=== PATIENT | female | born 1995 | race Two or more races ===

== ENCOUNTER 2023-12-03 13:30 | Inpatient (IN) | payer OTHER, SELFPAY ==
[2023-12-03] VITALS (118 sets, daily range): BP systolic 93–173; BP diastolic 54–115; PULSE 56–114; RESP 14–18; TEMP 36.2–36.7; O2SAT 81–100; BMI 26.4
[2023-12-03] MEDS: Lactated Ringers 1,000 ML 50 ML IV (13:20)
[2023-12-03] MEDS: 0.9% Saline Lock 10 ML Syringe IV (13:20)
[2023-12-03 13:33] LABS: Hematocrit 33.3 % (37-47); Mean Corpuscular Hgb 29.3 pg (27.0-32.0); Mean Corpuscular Volume 88.6 fL (81-99); Mean Platelet Vol. 11.5 fl (6.2-12.0); Platelet Count 191 K/mm3 (150-450); RBC Distribution Width CV 13.8 % (11.6-14.6); RBC Distribution Width SD 43.9 fl (35.1-43.9); Red Blood Count 3.76 M/mm3 (4.2-5.4); White Blood Count 6.3 K/mm3 (4.4-11.0)
[2023-12-03 13:45] LABS: Protein:Creat Ratio 8381 mg/g CRE (0-200)
[2023-12-03] MEDS: Labetalol (Prefilled) 20 MG/4 ML IV (13:56)
[2023-12-03 13:59] LABS: AST(SGOT) 31 U/L (15-37); Alanine Aminotransfer ALT/SGPT 16 U/L (13-56); EST Glomerular Filtration Rate 70 mL/min (>60); Est Glom Filt Rate - Afr Amer 84 mL/min (>60); Uric Acid 6.3 mg/dL (2.6-6.0)
[2023-12-03] MEDS: Magnesium Sulfate 4gm/100mL 4 GM/100 ML IV.SOLN. IV (13:59)
[2023-12-03] MEDS: Betamethasone/Betamethasone 30 MG/5 ML Vial 12 MG IM (14:02)
[2023-12-03] MEDS: Magnesium Sulfate 20 GM/500 ML BAG IV ×2 (14:24→23:41)
[2023-12-03] MEDS: Ondansetron 4 MG/2 ML Vial IV (15:11)
[2023-12-03] MEDS: Oxytocin 15 Units/NS 250ml 15 UNITS/250 ML IV.SOLN 2 UNITS IV (15:40)
[2023-12-03] MEDS: Penicillin G Pot 5,000,000 UNITS in 0.9% Normal Saline (100mL MB+) 100 ML 150 UNITS IV (15:49)
[2023-12-03] MEDS: Labetalol 100 MG Tablet PO (15:50)
[2023-12-03] MEDS: Penicillin G 3,000,000 Units 50 ML 100 UNITS IV (19:49)
--- NOTE | 2023-12-03 20:43 | PCM.HP.OB ---
HPI - General General Date of Admission: 12/03/23 Date of Service: 12/03/23 Chief Complaint: pre eclampsia HPI Narrative KIRBY STINSON, is a 28 F who presents for evaluation given elevated p/c ratio and creatinine on outpatient labs. She denies HARPER or vision changes. Has had swelling. No ctx, vb, lof. +FM. PFSH PFSH Medical History (Updated 12/03/23 @ 20:[address] Sapna Andrews, DO) Asthma Depression Anxiety Pre-eclampsia Gestational HTN Home Medications ?Medication ?Instructions ?Recorded ?Last Taken ?Type aspirin 81 mg chewable tablet 1 tab PO DAILY 12/03/23 12/01/23 20:00 History (Aspirin Childrens) 1 TAB doxylamine succinate 25 mg tablet 12.5 mg PO QHS PRN sleep 12/03/23 12/01/23 20:00 History (Unisom (doxylamine)) 12.5 mg ferrous sulfate 325 mg (65 mg 325 mg PO QODAY 12/03/23 12/01/23 08:00 History iron) tablet (FeroSul) 325 mg fluoxetine 20 mg capsule 20 mg PO DAILY 12/03/23 12/01/23 20:00 History 20 mg pantoprazole 20 mg tablet,delayed 20 mg PO DAILY 12/03/23 12/01/23 20:00 History release (Protonix) 20 mg vit no.95-ferrous 1 tab PO DAILY 12/03/23 12/01/23 20:00 History fumarate 28 mg-folic acid 800 mcg 1 TAB tablet () pyridoxine (vitamin B6) 25 mg 25 mg PO DAILY 12/03/23 12/01/23 20:00 History tablet 25 mg Allergy/AdvReac Type Severity Reaction Status Date / Time pumpkin Allergy Severe itchy Verified 12/03/23 12:51 throat Surgical History (Updated 12/03/23 @ 18:49 by Deana Pena) History of surgery Social History Smoking Status: Never smoker History Elective abortions Hx Para 0 Spontaneous abortions Hx # Term Pregnancies Ectopic pregnancies Hx # Pregnancies Multiple births # of living children NST FHR Rate Baby A FHR Category:: Category I Uterine Activity:: no ctx's on admission Vital Signs Vital Signs Vital Signs: 12/03/23 12:38 12/03/23 12:38 12/03/23 12:38 Temperature Temperature Source Temporal Pulse Rate 77 Respiratory Rate Respiratory Effort Respiratory Depth Respiratory Pattern Blood Pressure 143/105 H Blood Pressure Mean BP Systolic 143 BP Diastolic 105 Blood Pressure Source Blood Pressure Position Blood Pressure Location Pulse Ox Oxygen Delivery Method 12/03/23 12:38 12/03/23 12:38 12/03/23 12:54 Temperature 97.9 F Temperature Source Pulse Rate Respiratory Rate 18 Respiratory Effort Respiratory Depth Respiratory Pattern Blood Pressure 153/109 H Blood Pressure Mean BP Systolic 153 BP Diastolic 109 Blood Pressure Source Blood Pressure Position Blood Pressure Location Pulse Ox Oxygen Delivery Method 12/03/23 12:54 12/03/23 13:10 12/03/23 13:10 Temperature Temperature Source Pulse Rate 71 64 Respiratory Rate Respiratory Effort Respiratory Depth Respiratory Pattern Blood Pressure 152/104 H Blood Pressure Mean BP Systolic 152 BP Diastolic 104 Blood Pressure Source Blood Pressure Position Blood Pressure Location Pulse Ox Oxygen Delivery Method 12/03/23 13:24 12/03/23 13:24 12/03/23 13:39 Temperature Temperature Source Pulse Rate 69 Respiratory Rate Respiratory Effort Respiratory Depth Respiratory Pattern Blood Pressure 164/105 H 172/112 H Blood Pressure Mean BP Systolic 164 172 BP Diastolic 105 112 Blood Pressure Source Blood Pressure Position Blood Pressure Location Pulse Ox Oxygen Delivery Method 12/03/23 13:39 12/03/23 13:54 12/03/23 13:54 Temperature Temperature Source Pulse Rate 69 64 Respiratory Rate Respiratory Effort Respiratory Depth Respiratory Pattern Blood Pressure 173/115 H Blood Pressure Mean BP Systolic 173 BP Diastolic 115 Blood Pressure Source Blood Pressure Position Blood Pressure Location Pulse Ox Oxygen Delivery Method 12/03/23 13:59 12/03/23 13:59 12/03/23 14:00 Temperature Temperature Source Pulse Rate 67 70 Respiratory Rate 18 Respiratory Effort Normal Respiratory Depth Normal Respiratory Pattern Normal Blood Pressure 173/115 H Blood Pressure Mean 134 BP Systolic BP Diastolic Blood Pressure Source Monitor Blood Pressure Position Semi-Fowlers Blood Pressure Location Left Arm Pulse Ox 98 98 Oxygen Delivery Method Room Air 12/03/23 14:04 12/03/23 14:04 12/03/23 14:05 Temperature Temperature Source Pulse Rate 93 Respiratory Rate Respiratory Effort Respiratory Depth Respiratory Pattern Blood Pressure 136/92 H Blood Pressure Mean BP Systolic 136 BP Diastolic 92 Blood Pressure Source Blood Pressure Position Blood Pressure Location Pulse Ox 98 Oxygen Delivery Method 12/03/23 14:05 12/03/23 14:09 12/03/23 14:09 Temperature Temperature Source Pulse Rate 86 69 Respiratory Rate Respiratory Effort Respiratory Depth Respiratory Pattern Blood Pressure Blood Pressure Mean BP Systolic BP Diastolic Blood Pressure Source Blood Pressure Position Blood Pressure Location Pulse Ox 99 Oxygen Delivery Method 12/03/23 14:14 12/03/23 14:14 12/03/23 14:18 Temperature Temperature Source Pulse Rate 83 Respiratory Rate Respiratory Effort Normal Respiratory Depth Normal Respiratory Pattern Normal Blood Pressure Blood Pressure Mean BP Systolic BP Diastolic Blood Pressure Source Blood Pressure Position Blood Pressure Location Pulse Ox 99 Oxygen Delivery Method 12/03/23 14:19 12/03/23 14:19 12/03/23 14:24 Temperature Temperature Source Pulse Rate 78 76 Respiratory Rate Respiratory Effort Respiratory Depth Respiratory Pattern Blood Pressure Blood Pressure Mean BP Systolic BP Diastolic Blood Pressure Source Blood Pressure Position Blood Pressure Location Pulse Ox 97 Oxygen Delivery Method 12/03/23 14:24 12/03/23 14:25 12/03/23 14:25 Temperature Temperature Source Pulse Rate 68 Respiratory Rate Respiratory Effort Respiratory Depth Respiratory Pattern Blood Pressure 140/84 H Blood Pressure Mean BP Systolic 140 BP Diastolic 84 Blood Pressure Source Blood Pressure Position Blood Pressure Location Pulse Ox 97 Oxygen Delivery Method 12/03/23 14:28 12/03/23 14:28 12/03/23 14:29 Temperature Temperature Source Pulse Rate 74 78 Respiratory Rate Respiratory Effort Respiratory Depth Respiratory Pattern Blood Pressure Blood Pressure Mean BP Systolic BP Diastolic Blood Pressure Source Blood Pressure Position Blood Pressure Location Pulse Ox 94 Oxygen Delivery Method 12/03/23 14:29 12/03/23 14:34 12/03/23 14:34 Temperature Temperature Source Pulse Rate 73 Respiratory Rate Respiratory Effort Respiratory Depth Respiratory Pattern Blood Pressure Blood Pressure Mean BP Systolic BP Diastolic Blood Pressure Source Blood Pressure Position Blood Pressure Location Pulse Ox 98 98 Oxygen Delivery Method 12/03/23 14:35 12/03/23 14:35 12/03/23 14:39 Temperature Temperature Source Pulse Rate 72 69 Respiratory Rate Respiratory Effort Respiratory Depth Respiratory Pattern Blood Pressure 137/90 H Blood Pressure Mean BP Systolic 137 BP Diastolic 90 Blood Pressure Source Blood Pressure Position Blood Pressure Location Pulse Ox Oxygen Delivery Method 12/03/23 14:39 12/03/23 14:44 12/03/23 14:44 Temperature Temperature Source Pulse Rate 66 Respiratory Rate Respiratory Effort Respiratory Depth Respiratory Pattern Blood Pressure Blood Pressure Mean BP Systolic BP Diastolic Blood Pressure Source Blood Pressure Position Blood Pressure Location Pulse Ox 98 97 Oxygen Delivery Method 12/03/23 14:45 12/03/23 14:45 12/03/23 14:49 Temperature Temperature Source Pulse Rate 75 74 Respiratory Rate Respiratory Effort Respiratory Depth Respiratory Pattern Blood Pressure 129/89 H Blood Pressure Mean BP Systolic 129 BP Diastolic 89 Blood Pressure Source Blood Pressure Position Blood Pressure Location Pulse Ox Oxygen Delivery Method 12/03/23 14:49 12/03/23 14:54 12/03/23 14:54 Temperature Temperature Source Pulse Rate 101 H Respiratory Rate Respiratory Effort Respiratory Depth Respiratory Pattern Blood Pressure Blood Pressure Mean BP Systolic BP Diastolic Blood Pressure Source Blood Pressure Position Blood Pressure Location Pulse Ox 98 99 Oxygen Delivery Method 12/03/23 14:56 12/03/23 14:56 12/03/23 14:59 Temperature Temperature Source Pulse Rate 89 76 Respiratory Rate Respiratory Effort Respiratory Depth Respiratory Pattern Blood Pressure 151/101 H Blood Pressure Mean BP Systolic 151 BP Diastolic 101 Blood Pressure Source Blood Pressure Position Blood Pressure Location Pulse Ox Oxygen Delivery Method 12/03/23 14:59 12/03/23 15:03 12/03/23 15:04 Temperature Temperature Source Pulse Rate 93 Respiratory Rate Respiratory Effort Normal Respiratory Depth Normal Respiratory Pattern Normal Blood Pressure 111/73 Blood Pressure Mean 85 BP Systolic BP Diastolic Blood Pressure Source Monitor Blood Pressure Position Semi-Fowlers Blood Pressure Location Left Arm Pulse Ox 96 Oxygen Delivery Method 12/03/23 15:04 12/03/23 15:06 12/03/23 15:06 Temperature Temperature Source Pulse Rate 60 Respiratory Rate Respiratory Effort Respiratory Depth Respiratory Pattern Blood Pressure 137/95 H Blood Pressure Mean BP Systolic 137 BP Diastolic 95 Blood Pressure Source Blood Pressure Position Blood Pressure Location Pulse Ox 99 Oxygen Delivery Method 12/03/23 15:06 12/03/23 15:06 12/03/23 15:09 Temperature Temperature Source Pulse Rate 61 73 Respiratory Rate Respiratory Effort Respiratory Depth Respiratory Pattern Blood Pressure Blood Pressure Mean BP Systolic BP Diastolic Blood Pressure Source Blood Pressure Position Blood Pressure Location Pulse Ox 94 Oxygen Delivery Method 12/03/23 15:09 12/03/23 15:12 12/03/23 15:12 Temperature Temperature Source Pulse Rate 60 Respiratory Rate Respiratory Effort Respiratory Depth Respiratory Pattern Blood Pressure Blood Pressure Mean BP Systolic BP Diastolic Blood Pressure Source Blood Pressure Position Blood Pressure Location Pulse Ox 97 93 Oxygen Delivery Method 12/03/23 15:14 12/03/23 15:14 12/03/23 15:15 Temperature Temperature Source Pulse Rate 84 Respiratory Rate Respiratory Effort Respiratory Depth Respiratory Pattern Blood Pressure 114/77 Blood Pressure Mean BP Systolic 114 BP Diastolic 77 Blood Pressure Source Blood Pressure Position Blood Pressure Location Pulse Ox 98 Oxygen Delivery Method 12/03/23 15:15 12/03/23 15:19 12/03/23 15:19 Temperature Temperature Source Pulse Rate 77 72 Respiratory Rate Respiratory Effort Respiratory Depth Respiratory Pattern Blood Pressure Blood Pressure Mean BP Systolic BP Diastolic Blood Pressure Source Blood Pressure Position Blood Pressure Location Pulse Ox 98 Oxygen Delivery Method 12/03/23 15:24 12/03/23 15:24 12/03/23 15:29 Temperature Temperature Source Pulse Rate 77 81 Respiratory Rate Respiratory Effort Respiratory Depth Respiratory Pattern Blood Pressure Blood Pressure Mean BP Systolic BP Diastolic Blood Pressure Source Blood Pressure Position Blood Pressure Location Pulse Ox 99 Oxygen Delivery Method 12/03/23 15:29 12/03/23 15:33 12/03/23 15:34 Temperature Temperature Source Pulse Rate 66 Respiratory Rate 14 Respiratory Effort Normal Respiratory Depth Normal Respiratory Pattern Normal Blood Pressure 111/79 Blood Pressure Mean 89 BP Systolic BP Diastolic Blood Pressure Source Monitor Blood Pressure Position Semi-Fowlers Blood Pressure Location Left Arm Pulse Ox 99 Oxygen Delivery Method Room Air 12/03/23 15:34 12/03/23 15:36 12/03/23 15:36 Temperature Temperature Source Pulse Rate 74 Respiratory Rate Respiratory Effort Respiratory Depth Respiratory Pattern Blood Pressure 116/84 H Blood Pressure Mean BP Systolic 116 BP Diastolic 84 Blood Pressure Source Blood Pressure Position Blood Pressure Location Pulse Ox 99 Oxygen Delivery Method 12/03/23 15:39 12/03/23 15:39 12/03/23 15:39 Temperature Temperature Source Pulse Rate 62 60 Respiratory Rate Respiratory Effort Respiratory Depth Respiratory Pattern Blood Pressure Blood Pressure Mean BP Systolic BP Diastolic Blood Pressure Source Blood Pressure Position Blood Pressure Location Pulse Ox 97 Oxygen Delivery Method 12/03/23 15:39 12/03/23 15:44 12/03/23 15:44 Temperature Temperature Source Pulse Rate 76 Respiratory Rate Respiratory Effort Respiratory Depth Respiratory Pattern Blood Pressure Blood Pressure Mean BP Systolic BP Diastolic Blood Pressure Source Blood Pressure Position Blood Pressure Location Pulse Ox 94 97 Oxygen Delivery Method 12/03/23 15:46 12/03/23 15:46 12/03/23 15:49 Temperature Temperature Source Pulse Rate 57 L Respiratory Rate Respiratory Effort Respiratory Depth Respiratory Pattern Blood Pressure 111/79 Blood Pressure Mean BP Systolic 111 BP Diastolic 79 Blood Pressure Source Blood Pressure Position Blood Pressure Location Pulse Ox 93 Oxygen Delivery Method 12/03/23 15:49 12/03/23 15:49 12/03/23 15:54 Temperature Temperature Source Pulse Rate 71 69 Respiratory Rate Respiratory Effort Respiratory Depth Respiratory Pattern Blood Pressure Blood Pressure Mean BP Systolic BP Diastolic Blood Pressure Source Blood Pressure Position Blood Pressure Location Pulse Ox 98 Oxygen Delivery Method 12/03/23 15:54 12/03/23 15:59 12/03/23 15:59 Temperature Temperature Source Pulse Rate 74 Respiratory Rate Respiratory Effort Respiratory Depth Respiratory Pattern Blood Pressure Blood Pressure Mean BP Systolic BP Diastolic Blood Pressure Source Blood Pressure Position Blood Pressure Location Pulse Ox 99 100 Oxygen Delivery Method 12/03/23 16:04 12/03/23 16:04 12/03/23 16:04 Temperature Temperature Source Pulse Rate 78 Respiratory Rate Respiratory Effort Respiratory Depth Respiratory Pattern Blood Pressure 119/85 H Blood Pressure Mean BP Systolic 119 BP Diastolic 85 Blood Pressure Source Blood Pressure Position Blood Pressure Location Pulse Ox 98 Oxygen Delivery Method 12/03/23 16:04 12/03/23 16:09 12/03/23 16:09 Temperature Temperature Source Pulse Rate 77 77 Respiratory Rate Respiratory Effort Respiratory Depth Respiratory Pattern Blood Pressure Blood Pressure Mean BP Systolic BP Diastolic Blood Pressure Source Blood Pressure Position Blood Pressure Location Pulse Ox 98 Oxygen Delivery Method 12/03/23 16:14 12/03/23 16:14 12/03/23 16:19 Temperature Temperature Source Pulse Rate 70 Respiratory Rate Respiratory Effort Respiratory Depth Respiratory Pattern Blood Pressure 136/85 H Blood Pressure Mean BP Systolic 136 BP Diastolic 85 Blood Pressure Source Blood Pressure Position Blood Pressure Location Pulse Ox 99 Oxygen Delivery Method 12/03/23 16:19 12/03/23 16:19 12/03/23 16:24 Temperature Temperature Source Pulse Rate 67 77 Respiratory Rate Respiratory Effort Respiratory Depth Respiratory Pattern Blood Pressure Blood Pressure Mean BP Systolic BP Diastolic Blood Pressure Source Blood Pressure Position Blood Pressure Location Pulse Ox 100 Oxygen Delivery Method 12/03/23 16:24 12/03/23 16:29 12/03/23 16:29 Temperature Temperature Source Pulse Rate 77 Respiratory Rate Respiratory Effort Respiratory Depth Respiratory Pattern Blood Pressure Blood Pressure Mean BP Systolic BP Diastolic Blood Pressure Source Blood Pressure Position Blood Pressure Location Pulse Ox 100 100 Oxygen Delivery Method 12/03/23 16:33 12/03/23 16:34 12/03/23 16:34 Temperature Temperature Source Pulse Rate 73 Respiratory Rate Respiratory Effort Normal Respiratory Depth Normal Respiratory Pattern Blood Pressure 136/85 H Blood Pressure Mean 102 BP Systolic BP Diastolic Blood Pressure Source Monitor Blood Pressure Position Semi-Fowlers Blood Pressure Location Left Arm Pulse Ox 100 Oxygen Delivery Method 12/03/23 16:39 12/03/23 16:39 12/03/23 16:44 Temperature Temperature Source Pulse Rate 73 76 Respiratory Rate Respiratory Effort Respiratory Depth Respiratory Pattern Blood Pressure Blood Pressure Mean BP Systolic BP Diastolic Blood Pressure Source Blood Pressure Position Blood Pressure Location Pulse Ox 100 Oxygen Delivery Method 12/03/23 16:44 12/03/23 16:49 12/03/23 16:49 Temperature Temperature Source Pulse Rate 70 Respiratory Rate Respiratory Effort Respiratory Depth Respiratory Pattern Blood Pressure Blood Pressure Mean BP Systolic BP Diastolic Blood Pressure Source Blood Pressure Position Blood Pressure Location Pulse Ox 100 100 Oxygen Delivery Method 12/03/23 16:51 12/03/23 16:51 12/03/23 16:54 Temperature Temperature Source Pulse Rate 68 64 Respiratory Rate Respiratory Effort Respiratory Depth Respiratory Pattern Blood Pressure 111/73 Blood Pressure Mean BP Systolic 111 BP Diastolic 73 Blood Pressure Source Blood Pressure Position Blood Pressure Location Pulse Ox Oxygen Delivery Method 12/03/23 16:54 12/03/23 16:59 12/03/23 16:59 Temperature Temperature Source Pulse Rate 74 Respiratory Rate Respiratory Effort Respiratory Depth Respiratory Pattern Blood Pressure Blood Pressure Mean BP Systolic BP Diastolic Blood Pressure Source Blood Pressure Position Blood Pressure Location Pulse Ox 99 100 Oxygen Delivery Method 12/03/23 17:00 12/03/23 17:04 12/03/23 17:04 Temperature Temperature Source Pulse Rate 71 Respiratory Rate 14 Respiratory Effort Respiratory Depth Respiratory Pattern Blood Pressure 111/73 Blood Pressure Mean 85 BP Systolic BP Diastolic Blood Pressure Source Monitor Blood Pressure Position Semi-Fowlers Blood Pressure Location Right Arm Pulse Ox 100 Oxygen Delivery Method Room Air 12/03/23 17:09 12/03/23 17:09 12/03/23 17:14 Temperature Temperature Source Pulse Rate 67 67 Respiratory Rate Respiratory Effort Respiratory Depth Respiratory Pattern Blood Pressure Blood Pressure Mean BP Systolic BP Diastolic Blood Pressure Source Blood Pressure Position Blood Pressure Location Pulse Ox 100 Oxygen Delivery Method 12/03/23 17:14 12/03/23 17:19 12/03/23 17:19 Temperature Temperature Source Pulse Rate 66 Respiratory Rate Respiratory Effort Respiratory Depth Respiratory Pattern Blood Pressure Blood Pressure Mean BP Systolic BP Diastolic Blood Pressure Source Blood Pressure Position Blood Pressure Location Pulse Ox 97 96 Oxygen Delivery Method 12/03/23 17:24 12/03/23 17:24 12/03/23 17:29 Temperature Temperature Source Pulse Rate 56 L 60 Respiratory Rate Respiratory Effort Respiratory Depth Respiratory Pattern Blood Pressure Blood Pressure Mean BP Systolic BP Diastolic Blood Pressure Source Blood Pressure Position Blood Pressure Location Pulse Ox 96 Oxygen Delivery Method 12/03/23 17:29 12/03/23 17:34 12/03/23 17:34 Temperature Temperature Source Pulse Rate 64 Respiratory Rate Respiratory Effort Respiratory Depth Respiratory Pattern Blood Pressure Blood Pressure Mean BP Systolic BP Diastolic Blood Pressure Source Blood Pressure Position Blood Pressure Location Pulse Ox 97 95 Oxygen Delivery Method 12/03/23 17:34 12/03/23 17:34 12/03/23 17:39 Temperature Temperature Source Pulse Rate 74 58 L Respiratory Rate Respiratory Effort Respiratory Depth Respiratory Pattern Blood Pressure Blood Pressure Mean BP Systolic BP Diastolic Blood Pressure Source Blood Pressure Position Blood Pressure Location Pulse Ox 94 Oxygen Delivery Method 12/03/23 17:39 12/03/23 17:44 12/03/23 17:44 Temperature Temperature Source Pulse Rate 68 Respiratory Rate Respiratory Effort Respiratory Depth Respiratory Pattern Blood Pressure Blood Pressure Mean BP Systolic BP Diastolic Blood Pressure Source Blood Pressure Position Blood Pressure Location Pulse Ox 98 95 Oxygen Delivery Method 12/03/23 17:45 12/03/23 17:45 12/03/23 17:49 Temperature Temperature Source Pulse Rate 84 66 Respiratory Rate Respiratory Effort Respiratory Depth Respiratory Pattern Blood Pressure Blood Pressure Mean BP Systolic BP Diastolic Blood Pressure Source Blood Pressure Position Blood Pressure Location Pulse Ox 94 Oxygen Delivery Method 12/03/23 17:49 12/03/23 17:52 12/03/23 17:52 Temperature Temperature Source Pulse Rate 74 Respiratory Rate Respiratory Effort Respiratory Depth Respiratory Pattern Blood Pressure 93/54 L Blood Pressure Mean BP Systolic 93 BP Diastolic 54 Blood Pressure Source Blood Pressure Position Blood Pressure Location Pulse Ox 95 Oxygen Delivery Method 12/03/23 17:54 12/03/23 17:54 12/03/23 17:59 Temperature Temperature Source Pulse Rate 66 58 L Respiratory Rate Respiratory Effort Respiratory Depth Respiratory Pattern Blood Pressure Blood Pressure Mean BP Systolic BP Diastolic Blood Pressure Source Blood Pressure Position Blood Pressure Location Pulse Ox 95 Oxygen Delivery Method 12/03/23 17:59 12/03/23 18:00 12/03/23 18:04 Temperature Temperature Source Pulse Rate 58 L 81 Respiratory Rate 14 Respiratory Effort Normal Respiratory Depth Normal Respiratory Pattern Normal Blood Pressure 93/54 L Blood Pressure Mean 67 BP Systolic BP Diastolic Blood Pressure Source Monitor Blood Pressure Position Semi-Fowlers Blood Pressure Location Left Arm Pulse Ox 97 97 Oxygen Delivery Method 12/03/23 18:04 12/03/23 18:09 12/03/23 18:09 Temperature Temperature Source Pulse Rate 66 Respiratory Rate Respiratory Effort Respiratory Depth Respiratory Pattern Blood Pressure Blood Pressure Mean BP Systolic BP Diastolic Blood Pressure Source Blood Pressure Position Blood Pressure Location Pulse Ox 100 100 Oxygen Delivery Method 12/03/23 18:14 12/03/23 18:14 12/03/23 18:15 Temperature Temperature Source Temporal Pulse Rate 66 Respiratory Rate Respiratory Effort Respiratory Depth Respiratory Pattern Blood Pressure Blood Pressure Mean BP Systolic BP Diastolic Blood Pressure Source Blood Pressure Position Blood Pressure Location Pulse Ox 99 Oxygen Delivery Method 12/03/23 18:15 12/03/23 18:15 12/03/23 18:19 Temperature 98.0 F Temperature Source Pulse Rate 73 Respiratory Rate 16 Respiratory Effort Respiratory Depth Respiratory Pattern Blood Pressure Blood Pressure Mean BP Systolic BP Diastolic Blood Pressure Source Blood Pressure Position Blood Pressure Location Pulse Ox Oxygen Delivery Method 12/03/23 18:19 12/03/23 18:24 12/03/23 18:24 Temperature Temperature Source Pulse Rate 62 Respiratory Rate Respiratory Effort Respiratory Depth Respiratory Pattern Blood Pressure Blood Pressure Mean BP Systolic BP Diastolic Blood Pressure Source Blood Pressure Position Blood Pressure Location Pulse Ox 100 100 Oxygen Delivery Method 12/03/23 18:29 12/03/23 18:29 12/03/23 18:31 Temperature Temperature Source Pulse Rate 70 Respiratory Rate Respiratory Effort Respiratory Depth Respiratory Pattern Blood Pressure 115/67 Blood Pressure Mean BP Systolic 115 BP Diastolic 67 Blood Pressure Source Blood Pressure Position Blood Pressure Location Pulse Ox 100 Oxygen Delivery Method 12/03/23 18:31 12/03/23 18:34 12/03/23 18:34 Temperature Temperature Source Pulse Rate 56 L 69 Respiratory Rate Respiratory Effort Respiratory Depth Respiratory Pattern Blood Pressure Blood Pressure Mean BP Systolic BP Diastolic Blood Pressure Source Blood Pressure Position Blood Pressure Location Pulse Ox 100 Oxygen Delivery Method 12/03/23 18:39 12/03/23 18:39 12/03/23 18:41 Temperature Temperature Source Pulse Rate 66 74 Respiratory Rate Respiratory Effort Respiratory Depth Respiratory Pattern Blood Pressure Blood Pressure Mean BP Systolic BP Diastolic Blood Pressure Source Blood Pressure Position Blood Pressure Location Pulse Ox 100 Oxygen Delivery Method 12/03/23 18:41 12/03/23 18:44 12/03/23 18:44 Temperature Temperature Source Pulse Rate 79 Respiratory Rate Respiratory Effort Respiratory Depth Respiratory Pattern Blood Pressure Blood Pressure Mean BP Systolic BP Diastolic Blood Pressure Source Blood Pressure Position Blood Pressure Location Pulse Ox 81 100 Oxygen Delivery Method 12/03/23 18:49 12/03/23 18:49 12/03/23 18:54 Temperature Temperature Source Pulse Rate 67 58 L Respiratory Rate Respiratory Effort Respiratory Depth Respiratory Pattern Blood Pressure Blood Pressure Mean BP Systolic BP Diastolic Blood Pressure Source Blood Pressure Position Blood Pressure Location Pulse Ox 100 Oxygen Delivery Method 12/03/23 18:54 12/03/23 18:56 12/03/23 18:56 Temperature 98 F Temperature Source Temporal Temporal Pulse Rate 58 L Respiratory Rate 14 Respiratory Effort Normal Respiratory Depth Normal Respiratory Pattern Normal Blood Pressure 115/67 Blood Pressure Mean 83 BP Systolic BP Diastolic Blood Pressure Source Monitor Blood Pressure Position Semi-Fowlers Blood Pressure Location Left Arm Pulse Ox 100 100 Oxygen Delivery Method Room Air 12/03/23 18:58 12/03/23 18:58 12/03/23 18:59 Temperature Temperature Source Pulse Rate 91 82 Respiratory Rate Respiratory Effort Respiratory Depth Respiratory Pattern Blood Pressure Blood Pressure Mean BP Systolic BP Diastolic Blood Pressure Source Blood Pressure Position Blood Pressure Location Pulse Ox 84 Oxygen Delivery Method 12/03/23 18:59 12/03/23 19:04 12/03/23 19:04 Temperature Temperature Source Pulse Rate 77 Respiratory Rate Respiratory Effort Respiratory Depth Respiratory Pattern Blood Pressure Blood Pressure Mean BP Systolic BP Diastolic Blood Pressure Source Blood Pressure Position Blood Pressure Location Pulse Ox 97 91 Oxygen Delivery Method 12/03/23 19:09 12/03/23 19:09 12/03/23 19:14 Temperature Temperature Source Pulse Rate 74 62 Respiratory Rate Respiratory Effort Respiratory Depth Respiratory Pattern Blood Pressure Blood Pressure Mean BP Systolic BP Diastolic Blood Pressure Source Blood Pressure Position Blood Pressure Location Pulse Ox 99 Oxygen Delivery Method 12/03/23 19:14 12/03/23 19:19 12/03/23 19:19 Temperature Temperature Source Pulse Rate 71 Respiratory Rate Respiratory Effort Respiratory Depth Respiratory Pattern Blood Pressure Blood Pressure Mean BP Systolic BP Diastolic Blood Pressure Source Blood Pressure Position Blood Pressure Location Pulse Ox 97 100 Oxygen Delivery Method 12/03/23 19:24 12/03/23 19:24 12/03/23 19:29 Temperature Temperature Source Pulse Rate 58 L 61 Respiratory Rate Respiratory Effort Respiratory Depth Respiratory Pattern Blood Pressure Blood Pressure Mean BP Systolic BP Diastolic Blood Pressure Source Blood Pressure Position Blood Pressure Location Pulse Ox 99 Oxygen Delivery Method 12/03/23 19:29 12/03/23 19:30 12/03/23 19:30 Temperature 97.4 F L Temperature Source Temporal Temporal Pulse Rate 69 Respiratory Rate 16 Respiratory Effort Normal Respiratory Depth Normal Respiratory Pattern Normal Blood Pressure 115/80 Blood Pressure Mean 91 BP Systolic BP Diastolic Blood Pressure Source Monitor Blood Pressure Position Semi-Fowlers Blood Pressure Location Right Arm Pulse Ox 98 99 Oxygen Delivery Method Room Air 12/03/23 19:34 12/03/23 19:34 12/03/23 19:34 Temperature Temperature Source Pulse Rate 69 Respiratory Rate Respiratory Effort Respiratory Depth Respiratory Pattern Blood Pressure 115/80 Blood Pressure Mean BP Systolic 115 BP Diastolic 80 Blood Pressure Source Blood Pressure Position Blood Pressure Location Pulse Ox 99 Oxygen Delivery Method 12/03/23 19:34 12/03/23 19:34 12/03/23 19:34 Temperature 97.4 F L Temperature Source Temporal Pulse Rate Respiratory Rate 16 Respiratory Effort Respiratory Depth Respiratory Pattern Blood Pressure Blood Pressure Mean BP Systolic BP Diastolic Blood Pressure Source Blood Pressure Position Blood Pressure Location Pulse Ox Oxygen Delivery Method 12/03/23 19:39 12/03/23 19:39 12/03/23 19:44 Temperature Temperature Source Pulse Rate 70 68 Respiratory Rate Respiratory Effort Respiratory Depth Respiratory Pattern Blood Pressure Blood Pressure Mean BP Systolic BP Diastolic Blood Pressure Source Blood Pressure Position Blood Pressure Location Pulse Ox 100 Oxygen Delivery Method 12/03/23 19:44 12/03/23 19:49 12/03/23 19:49 Temperature Temperature Source Pulse Rate 74 Respiratory Rate Respiratory Effort Respiratory Depth Respiratory Pattern Blood Pressure Blood Pressure Mean BP Systolic BP Diastolic Blood Pressure Source Blood Pressure Position Blood Pressure Location Pulse Ox 100 100 Oxygen Delivery Method 12/03/23 19:54 12/03/23 19:54 12/03/23 19:59 Temperature Temperature Source Pulse Rate 69 69 Respiratory Rate Respiratory Effort Respiratory Depth Respiratory Pattern Blood Pressure Blood Pressure Mean BP Systolic BP Diastolic Blood Pressure Source Blood Pressure Position Blood Pressure Location Pulse Ox 100 Oxygen Delivery Method 12/03/23 19:59 12/03/23 20:04 12/03/23 20:04 Temperature Temperature Source Pulse Rate 66 Respiratory Rate Respiratory Effort Respiratory Depth Respiratory Pattern Blood Pressure Blood Pressure Mean BP Systolic BP Diastolic Blood Pressure Source Blood Pressure Position Blood Pressure Location Pulse Ox 98 99 Oxygen Delivery Method 12/03/23 20:09 12/03/23 20:09 12/03/23 20:14 Temperature Temperature Source Pulse Rate 60 63 Respiratory Rate Respiratory Effort Respiratory Depth Respiratory Pattern Blood Pressure Blood Pressure Mean BP Systolic BP Diastolic Blood Pressure Source Blood Pressure Position Blood Pressure Location Pulse Ox 98 Oxygen Delivery Method 12/03/23 20:14 12/03/23 20:19 12/03/23 20:19 Temperature Temperature Source Pulse Rate 60 Respiratory Rate Respiratory Effort Respiratory Depth Respiratory Pattern Blood Pressure Blood Pressure Mean BP Systolic BP Diastolic Blood Pressure Source Blood Pressure Position Blood Pressure Location Pulse Ox 98 98 Oxygen Delivery Method 12/03/23 20:24 12/03/23 20:24 12/03/23 20:29 Temperature Temperature Source Pulse Rate 59 L 68 Respiratory Rate Respiratory Effort Respiratory Depth Respiratory Pattern Blood Pressure Blood Pressure Mean BP Systolic BP Diastolic Blood Pressure Source Blood Pressure Position Blood Pressure Location Pulse Ox 98 Oxygen Delivery Method 12/03/23 20:29 12/03/23 20:33 12/03/23 20:33 Temperature Temperature Source Pulse Rate 60 Respiratory Rate Respiratory Effort Respiratory Depth Respiratory Pattern Blood Pressure 123/77 H Blood Pressure Mean BP Systolic 123 BP Diastolic 77 Blood Pressure Source Blood Pressure Position Blood Pressure Location Pulse Ox 98 Oxygen Delivery Method 12/03/23 20:33 12/03/23 20:33 12/03/23 20:33 Temperature 98.0 F Temperature Source Temporal Pulse Rate Respiratory Rate 16 Respiratory Effort Respiratory Depth Respiratory Pattern Blood Pressure Blood Pressure Mean BP Systolic BP Diastolic Blood Pressure Source Blood Pressure Position Blood Pressure Location Pulse Ox Oxygen Delivery Method 12/03/23 20:34 12/03/23 20:34 Temperature Temperature Source Pulse Rate 114 H Respiratory Rate Respiratory Effort Respiratory Depth Respiratory Pattern Blood Pressure Blood Pressure Mean BP Systolic BP Diastolic Blood Pressure Source Blood Pressure Position Blood Pressure Location Pulse Ox 82 Oxygen Delivery Method Weight Weight: 149 lb 7.574 oz Body Mass Index (BMI) 26.4 Labs Labs Labs: Blood Type O POSITIVE Antibody Screen NEGATIVE Hct 33.3 % (37-47) L Hgb 11.0 g/dL (12.0-15.0) L Assessment & Plan (1) 35 weeks gestation of : (2) Severe pre-eclampsia: PLAN: Severe range blood pressures on admission with elevated p/c ratio. Mag started for seizure prophylaxis. Labetalol HTN protocol started. BMZ x 1 given. Discussed r/b/a induction of labor with patient. Reviewed pre eclampsia with severe features and risks of prematurity. Questions answered and patient satisfied with plan of care. Pitocin started per protocol. PCN started for GBS unknown and cx sent. Pelvis adequate and EFW < 4500 grams. (3) History of depression: (4) Encounter for planned induction of labor:
--- NOTE | 2023-12-03 20:48 | PCM.PN.BLA ---
Progress Note patient not feeling ctx's on 10 of pitocin. Assessment & Plan Assessment/Plan (1) Encounter for planned induction of labor: PLAN: Cvx /0 head well applied. Cervix very posterior and patient with pain during exam, so unable to AROM at this time. Continue pitocin per protocol. (2) History of depression: (3) Severe pre-eclampsia: (4) 35 weeks gestation of :
[2023-12-03 21:43] LABS: Syphilis Antibodies Non-reactive
[2023-12-04] VITALS (67 sets, daily range): BP systolic 56–165; BP diastolic 31–112; PULSE 55–112; RESP 12–158; TEMP 30.2–37.1; O2SAT 89–100
[2023-12-04] MEDS: Penicillin G 3,000,000 Units 50 ML 100 UNITS IV ×2 (01:10→05:12)
[2023-12-04] MEDS: Acetaminophen 500 MG Tablet PO (01:32)
[2023-12-04] MEDS: Ondansetron 4 MG/2 ML Vial IV ×2 (03:22→07:52)
[2023-12-04] MEDS: 0.9% Saline Lock 10 ML Syringe IV ×3 (03:22→15:34)
--- NOTE | 2023-12-04 03:33 | PCM.PN.BLA ---
Progress Note patient comfortable with contractions. nausea with the magnesium. Assessment & Plan Assessment/Plan (1) Encounter for planned induction of labor: PLAN: Cvx 4/80/0, head well applied. AROM performed in usual sterile fashion with return of large amount of clear fluid and IUPC placed. Pitocin at 20. Cont current management. (2) History of depression: (3) Severe pre-eclampsia: (4) 35 weeks gestation of :
[2023-12-04] MEDS: proCHLORPERazine 10 MG/2 ML Vial IV (06:02)
[2023-12-04] MEDS: Oxytocin 15 Units/NS 250ml 15 UNITS/250 ML IV.SOLN 20 UNITS IV (06:31)
[2023-12-04] MEDS: Lactated Ringers 1,000 ML 50 ML IV (06:31)
--- NOTE | 2023-12-04 07:20 | EX.PCM.OBRPT ---
Documented by User: Dr. Samantha Devine MD 12/04/23 10:33 Vaginal Delivery Operative Information Date of Procedure: 12/04/23 Pre-Operative Diagnosis: 35 weeks gestation , severe PRE Eclampsia Post-Operative Diagnosis: live male infant Surgery / Procedure Performed: Spontaneous Vaginal Delivery Type of Anesthesia: None Time of Delivery: 07:18 Findings Description of Procedure: Patient progressed to fully dilated with an hands and knees. I was on the unit and called to the room for immediate delivery. head was upon my entry. Good maternal pushing efforts delivered the infant's head followed by the shoulders and the rest of the infants body without delay. The cord was clamped and cut and handed to the waiting nursery team for evaluation. At this time Dr. Andrews stepped into the room to continue management of the patient and delivery of placenta. She reported a 2nd degree laceration, right labial laceration, and right pito urethral lacerations appreciated and repaired by Dr. Andrews with 3-0 rapide in usual fashion. Presentation: Vertex Amniotic Membrane Rupture Type: Artificial Amniotic Fluid Description: Clear Placental Delivery Description: Expressed Placenta Disposition: [facility] Specimen(s) Removed: placenta Cord Vessel Description: 3 Vessels Cord Entanglement: None Cord Gases: ABG and VBG A Gender: Male Delayed Cord Clamping: No Post Vaginal Delivery Medications Given After Delivery: IV Pitocin Laceration: Perineal Extension/lac and 2nd degree Complication Complications: None Documented by User: Dr. Sapna Andrews DO 12/04/23 08:40 Vaginal Delivery Maternal Presentation Maternal Presentation: Medically Indicated Induction Type of Induction: Pitocin and Amniotomy Medical Reason for Induction: Preeclampsia, eclampsia Operative Information Estimated Blood Loss: 300 Fluids Replaced: N/A Findings Description of Procedure: Patient progressed to fully dilated with an hands and knees. I was on the unit and called to the room for immediate delivery. head was upon my entry. Good maternal pushing efforts delivered the 's head followed by the anterior posterior shoulder. The cord was clamped and cut and handed to the waiting nursery team for evaluation. At this time Dr. Andrews stepped into the room to continue management of the patient and delivery of placenta. 2nd degree laceration, right labial laceration, and right pito urethral lacerations appreciated and repaired by Dr. Andrews with 3-0 rapide in usual fashion. (1 minute): 7 (5 minute): 9
[2023-12-04] MEDS: Oxytocin 15 Units/NS 250ml 15 UNITS/250 ML IV.SOLN 83 UNITS IV (08:10)
--- NOTE | 2023-12-04 08:40 | PCM.OPRPT ---
Problems Associated Problem List Diagnoses (1) Encounter for planned induction of labor: (2) History of depression: (3) Severe pre-eclampsia: (4) 35 weeks gestation of : (5) Vaginal delivery: (6) Second degree perineal laceration: Report of Operation Date of Procedure: 12/04/23 Pre-Operative Diagnosis: 35 week gestation, pre eclampsia with severe features Post-Operative Diagnosis: As above Surgery/Procedure Performed:: Description of Surgical Findings:: See previous operative report for delivery details Special Medications: None Specimen's removed: Placenta Drains: None Estimated Blood Loss (mL): 300 Fluids Replaced: N/A Description of Procedure: See previous operative report for delivery details. Upon entering room Dr. Spear had delivered the VMI and patient was in hands and knees. Cord was clamped and cut and to warmer. Patient was placed in dorsal supine position with legs in stirrups. The placenta delivered after 30 minutes with a combination of uterine massage and gentle traction. The placenta appeared normal appearing and intact with 3 VC. 3-0 Vicryl was used to repair a second degree perineal laceration. There was a right pito urethral laceration that was noted to be briskly bleeding. A straight catheter was placed to identify urethra. The right pito urethral laceration was repaired with 3-0 Vicryl to achieve hemostasis. A right labial laceration was reapproximated using 3-0 Vicrly. Fundus firm and bleeding hemostatic. Grafts/Implants Used: None
[2023-12-04 09:23] LABS: Absolute Lymphocyte Count 1.89 X10^3/uL (0.83-4.51); Absolute Neutrophil Count 16.3 X10^3/uL (2.0-7.7); Basophil# 0.02 X10^3/uL; Basophil% 0.1 % (0-1); Hematocrit 25.8 % (37-47); Hemoglobin 8.5 g/dL (12.0-15.0); Lymphocyte # 1.89 X10^3/ul (0.83-4.51); Lymphocyte % 9.8 % (19-41); Mean Corp Hgb Conc 32.9 g/dL (32-36); Mean Corpuscular Hgb 30.1 pg (27.0-32.0); Mean Corpuscular Volume 91.5 fL (81-99); Monocyte# 1.01 X10^3/uL; Monocyte% 5.2 % (0-10); NRBC Flagged by Analyzer 0 % (0-5); Neutrophil # 16.33 X10^3/uL (2.7-7.7); Neutrophil % 84.2 % (47-70); Platelet Count 188 K/mm3 (150-450); RBC Distribution Width CV 13.9 % (11.6-14.6); RBC Distribution Width SD 45.2 fl (35.1-43.9); Red Blood Count 2.82 M/mm3 (4.2-5.4); White Blood Count 19.4 K/mm3 (4.4-11.0)
[2023-12-04] MEDS: Lactated Ringers 500 ML IV.SOLN. 250 ML IV (09:55)
[2023-12-04] MEDS: Cefazolin 2 GM in 0.9% Normal Saline (100mL Bag) 100 ML IV (10:56)
[2023-12-04] MEDS: TRANEXAMIC ACID 1,000 MG in 0.9% Normal Saline (100mL Bag) 100 ML 440 MG IV (11:03)
[2023-12-04 11:09] LABS: International Normalized Ratio 1.4; Partial Thromboplast Time 30.3 Seconds (24.1-36.2); Prothrombin Time (Protime)PT. 16.9 SECONDS (11.7-14.9)
[2023-12-04 11:12] LABS: Mean Corp Hgb Conc 31.7 g/dL (32-36); Mean Corpuscular Hgb 29.5 pg (27.0-32.0); Mean Corpuscular Volume 93.3 fL (81-99); Mean Platelet Vol. 11.1 fl (6.2-12.0); POSITIVE COUNT YES; Platelet Count 155 K/mm3 (150-450); RBC Distribution Width SD 47.4 fl (35.1-43.9); Red Blood Count 1.93 M/mm3 (4.2-5.4); White Blood Count 17.7 K/mm3 (4.4-11.0)
[2023-12-04 11:23] LABS: Hemoglobin 5.7 g/dL (12.0-15.0); Scan Indicated on CBC? Y/N YES- FLAGS NOTED
[2023-12-04 11:41] LABS: Fibrinogen 138 mg/dl (203-444)
[2023-12-04 11:49] LABS: Lactic Acid 6.4 mmol/L (0.4-1.9)
--- NOTE | 2023-12-04 11:51 | CT_ITS ---
STUDY: CT ABDOMEN AND PELVIS WITH CONTRAST REASON FOR EXAM: Female, 28 years old. r/o retroperitoneal hematoma, PPH RADIATION DOSAGE (If Supplied By Facility): CTDIvol = ( 12.78 ) mGy, DLP = ( 803.69 ) mGycm TECHNIQUE: IV 100mL Isovue-300 was administered. Transaxial images were obtained from the dome of the diaphragm to the symphysis pubis in the portal venous phase. Multiplanar coronal and sagittal images were reformatted. Individualized Dose Optimization Techniques Were Used For This CT. COMPARISON: No relevant prior comparison study available FINDINGS: LOWER CHEST: Bibasilar dependent atelectasis. No cardiomegaly or pericardial effusion. LIVER: The liver is normal in size, shape, and attenuation. No focal mass. GALLBLADDER AND BILIARY TREE: The gallbladder is normally distended. Stones suspected in the gallbladder lumen. Mild gallbladder wall thickening noted.. No pericholecystic fluid. No intra- or extrahepatic biliary ductal dilation. PANCREAS: No focal cystic or solid mass. SPLEEN: Normal size without focal cystic or solid mass. ADRENAL GLANDS: No nodules. KIDNEYS AND URETERS: Normal renal size and position. Delayed nephrogram on the right. Mild right hydroureteronephrosis. No obstructing calculus. PERITONEUM: Small volume free fluid. No free air. No other fluid collection. BOWEL: The stomach is unremarkable. Normal caliber small bowel. There is no obstruction. No colonic wall thickening or inflammation. Appendix not seen. LYMPH NODES: No enlarged mesenteric or retroperitoneal lymph nodes. No retroperitoneal hematoma. VESSELS: Aorta is non-dilated. URINARY BLADDER: Decompressed bladder. Mendoza catheter in place. REPRODUCTIVE ORGANS: Post gravid uterus, prominent in size with fluid in the endometrial cavity. No adnexal mass. ABDOMINAL WALL: No discrete abdominal or pelvic wall hernia. Stranding in the left gluteal fat perianal region. This could represent hematoma.. BONES: No lytic or blastic abnormality. CT/Abdomen/Pelvis W IV Cont ONLY IMPRESSION: Prominent post gravid uterus. Fluid in the endometrial canal. Cannot exclude retained products of conception. Associated mild right hydroureteronephrosis. No retroperitoneal hematoma. Small amount of blood products along the left gluteal fold. Electronically Signed: Papi Craven MD at 13:09 EDT ,
--- NOTE | 2023-12-04 12:18 | PCM.OPRPT ---
Report of Operation Date of Procedure: 12/04/23 Pre-Operative Diagnosis: hemorrhage and vaginal hematoma Post-Operative Diagnosis: same Surgery/Procedure Performed:: evacuation and repair of vaginal hematoma Description of Surgical Findings:: Large left-sided vaginal hematoma extending up to the apex of the vagina. Smaller right sided vaginal hematoma. Left-sided 1 had necrosis through the vaginal wall and was actively bleeding. Cervix was intact. Surgeon: Amber Don hand glass cutter: Samantha Devine Type of Anesthesia: General Anesthesiologist: Milton Alas Special Medications: tranexemic acid, ancef Specimen's removed: none Drains: gray Estimated Blood Loss (mL): 2500 mL Fluids Replaced: see OR report Description of Procedure: I was asked by nursing to evaluate a patient because of low blood pressure. She also had a gush of vaginal bleeding and they were concerned about hemorrhage. I arrived in the room and the patient was very pale and cool and somewhat lethargic. I examined her pad and there is a moderate amount of blood and when I did some fundal massage it was noted the uterus was slightly off to the left and there was a gush of blood approximately 250 cc. There continued to be generalized oozing out of the vagina and when I did a gentle palpation I could feel a large left-sided vaginal hematoma. I discussed with the patient and her mother and that we recommended evaluation in the operating room. I ordered coags and blood to be typed and crossed and a second line. She was transported to the operating room where anesthesia arrived. They were unable to get a second line in her. Dr. Levin from general surgery was present. Evaluated her for an IJ line and it was decided she needed a central line and he placed that. Labs were pending as the blood was started. Gray catheter was placed. The patient was prepped and draped in dorsal lithotomy position and placed under general anesthesia. We used retractors to identify the large left-sided hematoma. We evacuated the hematoma and the vagina had necrosed through to the apex of the vagina. There were no actively bleeding blood vessels identified. Just the entire area was oozing bright red blood. I placed some hemoblast and held pressure for 2 minutes and it slowed some. This allowed me to place 2 layers of 2-0 Vicryl sutures in a running locked fashion through the defect. The first layer did not reach all the way to the apex but the second layer reached all the way to the apex of the defect. There is no active bleeding through the sutures. Then placed some sutures through the right vaginal sulcus where there appeared to be a small hematoma. I did a running locked stitch there. There is a small 1 cm defect near the cervicovaginal junction on the patient's right side. This was oversewn with 2-0 Vicryl running locked sutures as well. I should say that I placed him last and all of the defects before they were closed. We identified the cervix and it was intact and not actively bleeding. The uterus was explored and cleared of all clots. There is no active bleeding from the uterus and a brief ultrasound confirmed bright white endometrial stripe. Dr. Amador provided visualization, retraction and assistance with ultrasound assessment during the procedure. At the end there was no active bleeding from the vagina or through the sutures or from the cervix. Some Heema blast was placed over the entire vagina and a wet pack was held against all the sutures for 2 minutes. Sponge and needle counts were correct. Vaginal sweep was completed by me. We ordered 4 units of blood and 2 units of FFP to be infused. We got her labs back intraoperatively. We also called a code [place] so that platelets and cryoprecipitate would be ready. Patient was then prepped to be taken to CAT scan and then likely to the ICU. I updated the family. I discussed with them she would go to ICU. If there is evidence of a retroperitoneal hematoma or intraabdominal bleeding we will need to decide on transport vs exploratory laparotomy here. Procedure Start Time: 11:01 Procedure Stop Time: 11:59 Complications none Admit VTE Documentation VTE Present on Admission: No VTE Mechan Device Prophylaxis: SCD's VTE Pharm Prophylaxis ordered?: Yes
--- NOTE | 2023-12-04 12:35 | RAD_ITS ---
INDICATION: ETT/LINE PLACEMENT EXAMINATION/TECHNIQUE: X-RAY - XR Chest 1 View COMPARISON: No relevant prior comparison study available FINDINGS: LINES/DEVICES: Endotracheal tube terminates 4.5 cm above the cash. Left internal jugular central venous catheter terminates near the cavoatrial junction. LUNGS: The lungs are well expanded. No consolidation, edema or effusion. No pneumothorax. MEDIASTINUM AND CARDIOVASCULAR STRUCTURES: Cardiac silhouette not enlarged. Central airways and mediastinal contour are unremarkable. BONES AND SOFT TISSUES: No acute abnormality. RAD/CXR for Line Placement IMPRESSION: Endotracheal tube terminating 4.5 cm above the cash. Left internal jugular central venous catheter terminates near the cavoatrial junction. No pneumothorax. No acute pulmonary finding. Electronically Signed: Papi Craven MD at 12:57 EDT ,
[2023-12-04 13:31] LABS: Base Excess -9 mmol/L (-2 to +2); Bicarbonate 16.6 mmol/L (22-26); Blood Gas Specimen Type ART; Mode Not entered; O2 Delivery Device Not entered; PEEP 5; PO2 108 mmHG (75-100); RR 14; SITE Art Line; SO2 98 % (95-99); Total Carbon Dioxide 18 mmol/L; pCO2 28.6 mmHg (35-45); pH 7.37 (7.35-7.45)
--- NOTE | 2023-12-04 14:17 | CASEMGMT ---
Insurance review for hospitals In-network with?[employer] insurance if transfer is recommended is as follows: [facility], [place], [facility], [facility], [facility], [facility] ([facility]), and . Tyra Castro, Discharge Planning Asst.
--- NOTE | 2023-12-04 15:00 | PCM.PN.HOSP ---
Subjective Subjective 28-year-old female with preeclampsia presented to the hospital for delivery at 35 weeks with planned induction. She had a spontaneous vaginal delivery today at 0718. She developed severe hypotension and was found to have a large vaginal hematoma with some uterine atony. She was taken to the OR by OB and had a hematoma evacuated with 2.5 L blood loss. She arrived to the ICU intubated and sedated requiring pressor support. She was transfused 4 units as well as 2 units of FFP. Within about an hour of arrival to the ICU propofol was turned down to about 10 and pressor support was discontinued as her systolics were elevated as were her diastolics. An ABG was obtained by respiratory and her vent settings were turned down as her pCO2 was into the 20s. Fibrinogen level was low at 138 and PTT was slightly prolonged at 16.9 with an INR of 1.4. Objective Data Objective Data Vital Signs: Vital Signs Temp Pulse Resp BP Pulse Ox O2 Del Method FiO2 86.3 F L 63 14 149/102 H 100 Mechanical Ventilator 30 12/04/23 13:09 12/04/23 13:31 12/04/23 13:31 12/04/23 13:31 12/04/23 13:31 12/04/23 13:31 12/04/23 13:31 Oxygen Delivery Method Mechanical Ventilator Weight: 149 lb 7.574 oz Body Mass Index (BMI) 26.4 Intake & Output: Intake and Output for Last 24 Hours 12/03/23 12/04/23 12/05/23 03:59 03:59 03:59 Intake Total 1040.48 / 1040.48 1888.08 / 1888.08 Output Total 400 / 400 450 / 450 Balance 640.48 / 640.48 1438.08 / 1438.08 Lab / Micro Data 12/04/23 14:45 12/03/23 13:20 Labs: Laboratory Results - last 24 hr 12/03/23 13:20: Syphilis Total Ab Non-reactive 12/03/23 14:15: Blood Type O POSITIVE, Antibody Screen NEGATIVE, Crossmatch See Detail 12/04/23 09:05: WBC 19.4 H, RBC 2.82 L, Hgb 8.5 L, Hct 25.8 L, MCV 91.5, MCH 30.1, MCHC 32.9, RDW Std Deviation 45.2 H, RDW Coeff of June 13.9, Plt Count 188, MPV 11.0, Immature Gran % (Auto) 0.700, Neut % (Auto) 84.2 H, Lymph % (Auto) 9.8 L, [place] % (Auto) 5.2, Eos % (Auto) 0.0, Baso % (Auto) 0.1, Absolute Neuts (auto) 16.3 H, Absolute Lymphs (auto) 1.89, Nucleated RBC % 0 12/04/23 10:45: PT 16.9 H, INR 1.4, APTT 30.3, Fibrinogen 138 L 12/04/23 10:55: WBC 17.7 H, RBC 1.93 L, Hgb 5.7 L*, Hct 18.0 L, MCV 93.3, MCH 29.5, MCHC 31.7 L, RDW Std Deviation 47.4 H, RDW Coeff of June 14.0, Plt Count 155, MPV 11.1, Differential Comment COMMENT, Diff Path Review August, Lactic Acid 6.4 H* Micro: Microbiology 12/03/23 13:20 Genital vaginal Group B Streptococcus (PCR) - Final ABG Data ABG results: ABG 12/04/23 13:29 Specimen Type ART Sample Site Art Line pH 7.37 Bicarbonate Actual 16.6 L Total CO2 18 Base Excess -9 L O2 Saturation 98 O2 % 30.0 ABG pCO2 28.6 L ABG pO2 108 H Respiration Rate 14 O2 Delivery Device Not entered Vent Mode Not entered Tidal Volume 400.0 POC PEEP 5 Radiography Diagnostic Testing: Radiology Impression Abdomen/Pelvis CT 12/04/23 11:51 IMPRESSION: Prominent post gravid uterus. Fluid in the endometrial canal. Cannot exclude retained products of conception. Associated mild right hydroureteronephrosis. No retroperitoneal hematoma. Small amount of blood products along the left gluteal fold. Electronically Signed: Papi Craven MD at 13:09 EDT , Chest X-Ray 12/04/23 12:35 IMPRESSION: Endotracheal tube terminating 4.5 cm above the cash. Left internal jugular central venous catheter terminates near the cavoatrial junction. No pneumothorax. No acute pulmonary finding. Electronically Signed: Papi Craven MD at 12:57 EDT , Physical Exam Const General Appearance: intubated and patient mechanically ventilated HEENT normocephalic Eyes PERRL and conjunctivae normal Neck supple and no JVD Resp normal respiratory effort, no retractions and no use of accessory muscles Auscultation: Negative for crackles, rales, rhonchi or wheezes Cardio regular rate, regular rhythm, S1 normal heart sound, S2 normal heart sound and no murmurs GI soft to palpation and non-distended; Negative for hepatosplenomegaly Extremity no clubbing, cyanosis or edema Skin no rashes or lesions noted Neuro Sensorium / Orientation: sedated on vent Psych Appearance: intubated Assessment & Plan Assessment/Plan (1) Severe pre-eclampsia: (2) Second degree perineal laceration: (3) Hemorrhagic shock: PLAN: Plan 1. Hemorrhagic shock secondary to a large vaginal hematoma after induced vaginal delivery at 35 weeks for preeclampsia ? Will recheck H&H ? Turned down propofol given how low her blood pressures were once this was turned down we were able to turn off her pressor support this also coincided with the completion of 4 units of PRBCs ? Will hold off magnesium for her preeclampsia given hypotension ? Will be cognizant of not letting her blood pressure get too high as well given her preeclampsia ? Will evaluate for possible extubation either this afternoon or tomorrow morning, she remains intubated overnight will consult the oil rag washer ? She will be given platelets as well as FFP especially given fibrinogen level being as low as it is at 138, according to OB fibrinogen and a patient should be over 500 ? Will keep her systolics below 150 and her diastolics below 100 2. Anxiety/depression ? When able to take p.o. can resume her Prozac 3. GERD ? She remains intubated can resume PPI IV otherwise we will wait for her to be able to take p.o. DVT: SCDs Charges/Coding Visit Charges Inpatient E&M: 72513 Subs Hosp L3
[2023-12-04 15:02] LABS: Reflex Lactate? Y
[2023-12-04 15:06] LABS: Hemoglobin 10.2 g/dL (12.0-15.0)
[2023-12-04] MEDS: Labetalol (Prefilled) 20 MG/4 ML IV (15:31)
[2023-12-04 15:55] LABS: Base Excess -7 mmol/L (-2 to +2); Bicarbonate 16.7 mmol/L (22-26); Blood Gas Specimen Type ART; Mode Not entered; O2 Delivery Device Not entered; PEEP 5; PO2 155 mmHG (75-100); SITE Art Line; SO2 100 % (95-99); Total Carbon Dioxide 17 mmol/L; pCO2 24.1 mmHg (35-45); pH 7.45 (7.35-7.45)
[2023-12-04 16:14] LABS: Lactic Acid 5.1 mmol/L (0.4-1.9)
[2023-12-04 16:36] LABS: Anion Gap 9 (5-15); BUN 15 mg/dL (7-18); BUN/Creat Ratio 10.1 RATIO (10-20); Chloride 106 mmol/L (98-107); Creatinine, Serum 1.48 mg/dL (0.55-1.02); EST Glomerular Filtration Rate 44 mL/min (>60); Est Glom Filt Rate - Afr Amer 54 mL/min (>60); Estimated Creatinine Clearance 51.85 ml/min; Glucose 179 mg/dL (74-106); Potassium 5.4 mmol/L (3.5-5.1); Sodium Level 136 mmol/L (136-145)
[2023-12-04 20:26] LABS: Hematocrit 25.2 % (37-47); Hemoglobin 8.8 g/dL (12.0-15.0)
--- NOTE | 2023-12-04 20:55 | NURSING ---
2020- OB TIAN Feliz and Dr. Boss to ICU to check on patient. Asked about magnesium sulfate that is overdue on patients MAR. Dr. Boss gave this RN the order to hold off on giving this med. Clarified that reflexes do not need to be checked on patient w/ IV mag gtts off. OB TIAN Feliz informed this RN she will be back every 4 hours to perform fundal/ OB checks.
[2023-12-04 23:12] LABS: Hematocrit 25.6 % (37-47); Hemoglobin 8.9 g/dL (12.0-15.0)
[2023-12-05] VITALS (22 sets, daily range): BP systolic 88–150; BP diastolic 65–99; PULSE 63–87; RESP 12–24; TEMP 36.4–37.1; O2SAT 94–99
[2023-12-05 03:17] LABS: Hematocrit 23.3 % (37-47); Hemoglobin 8.1 g/dL (12.0-15.0); Mean Corp Hgb Conc 34.8 g/dL (32-36); Mean Corpuscular Hgb 30.3 pg (27.0-32.0); Mean Corpuscular Volume 87.3 fL (81-99); Mean Platelet Vol. 10.7 fl (6.2-12.0); POSITIVE COUNT YES; Platelet Count 88 K/mm3 (150-450); RBC Distribution Width CV 14.2 % (11.6-14.6); RBC Distribution Width SD 44.1 fl (35.1-43.9); Red Blood Count 2.67 M/mm3 (4.2-5.4)
[2023-12-05 03:26] LABS: Scan Indicated on CBC? Y/N YES- FLAGS NOTED
[2023-12-05 03:27] LABS: Differential Comment SCANNED
[2023-12-05 03:48] LABS: ALB/GLOB Ratio 0.8 RATIO (0.9-2.4); AST(SGOT) 37 U/L (15-37); Alanine Aminotransfer ALT/SGPT 12 U/L (13-56); Albumin, Serum 1.5 g/dL (3.2-5.0); Alkaline Phosphatase 84 U/L (45-117); Anion Gap 3 (5-15); BUN 19 mg/dL (7-18); BUN/Creat Ratio 14.2 RATIO (10-20); Chloride 107 mmol/L (98-107); Creatinine, Serum 1.34 mg/dL (0.55-1.02); EST Glomerular Filtration Rate 50 mL/min (>60); Est Glom Filt Rate - Afr Amer 60 mL/min (>60); Estimated Creatinine Clearance 57.27 ml/min; Globulin 1.9 g/dL (2.2-4.2); Glucose 135 mg/dL (74-106); Potassium 4.8 mmol/L (3.5-5.1); Protein, Total 3.4 g/dL (6.4-8.2); Sodium Level 138 mmol/L (136-145)
[2023-12-05] MEDS: 0.9% Saline Lock 10 ML Syringe IV ×3 (03:49→16:56)
[2023-12-05] MEDS: Ibuprofen 600 MG Tablet PO ×3 (03:49→20:12)
[2023-12-05] MEDS: fentaNYL 100 MCG/2 ML Ampul 25 MCG IV (04:43)
--- NOTE | 2023-12-05 05:40 | NURSING ---
0420- This RN to bedside to remove patient's arterial line in the left wrist. Dressing removed and line discontinued w/o issue. Pressure held until no bleeding observed, opsite placed over open site. Patient tolerated well.
[2023-12-05] MEDS: Acetaminophen 500 MG Tablet 1000 MG PO ×3 (08:23→21:22)
[2023-12-05] MEDS: FLUoxetine 20 MG Capsule PO (08:24)
--- NOTE | 2023-12-05 08:35 | PN.HOSP_ITS ---
Subjective Subjective Extubated last evening, doing well. Hemoglobin is 8.1 no further signs of bleeding Objective Data Objective Data Vital Signs: Vital Signs Temp Pulse Resp BP Pulse Ox O2 Del Method FiO2 98.7 F 66 15 113/74 98 Room Air 30 12/05/23 05:00 12/05/23 07:00 12/05/23 07:00 12/05/23 07:00 12/05/23 07:00 12/05/23 07:00 12/04/23 14:00 Oxygen Delivery Method Room Air Weight: 149 lb 7.574 oz Body Mass Index (BMI) 26.4 Intake & Output: Intake and Output for Last 24 Hours 12/04/23 12/05/23 12/06/23 03:59 03:59 03:59 Intake Total 1040.48 / 1040.48 2586.33 / 2586.33 Output Total 400 / 400 1418 / 1418 275 / 275 Balance 640.48 / 640.48 1168.33 / 1168.33 -275 / -275 Lab / Micro Data 12/05/23 03:08 12/05/23 03:08 Labs: Laboratory Results - last 24 hr 12/03/23 14:15: Blood Type O POSITIVE, Antibody Screen NEGATIVE, Crossmatch See Detail 12/04/23 09:05: WBC 19.4 H, RBC 2.82 L, Hgb 8.5 L, Hct 25.8 L, MCV 91.5, MCH 30.1, MCHC 32.9, RDW Std Deviation 45.2 H, RDW Coeff of June 13.9, Plt Count 188, MPV 11.0, Immature Gran % (Auto) 0.700, Neut % (Auto) 84.2 H, Lymph % (Auto) 9.8 L, [place] % (Auto) 5.2, Eos % (Auto) 0.0, Baso % (Auto) 0.1, Absolute Neuts (auto) 16.3 H, Absolute Lymphs (auto) 1.89, Nucleated RBC % 0 12/04/23 10:45: PT 16.9 H, INR 1.4, APTT 30.3, Fibrinogen 138 L 12/04/23 10:55: WBC 17.7 H, RBC 1.93 L, Hgb 5.7 L*, Hct 18.0 L, MCV 93.3, MCH 29.5, MCHC 31.7 L, RDW Std Deviation 47.4 H, RDW Coeff of June 14.0, Plt Count 155, MPV 11.1, Differential Comment COMMENT, Diff Path Review May dante, Lactic Acid 6.4 H* 12/04/23 14:45: Hgb 10.2 L, Hct 29.0 L 12/04/23 15:35: Lactic Acid 5.1 H* 12/04/23 16:10: Sodium 136, Potassium 5.4 H, Chloride 106, Carbon Dioxide 21.0, Anion Gap 9, BUN 15, Creatinine 1.48 H, Estim Creat Clear Calc 51.85, Est GFR (MDRD) Af Amer 54 L, Est GFR (MDRD) Non-Af 44 L, BUN/Creatinine Ratio 10.1, G lucose 179 H, Calcium 7.0 L 12/04/23 19:47: Hgb 8.8 L, Hct 25.2 L 12/04/23 23:05: Hgb 8.9 L, Hct 25.6 L 12/05/23 03:08: WBC 15.0 H, RBC 2.67 L, Hgb 8.1 L, Hct 23.3 L, MCV 87.3 D, MCH 30.3, MCHC 34.8 D, RDW Std Deviation 44.1 H, RDW Coeff of June 14.2, Plt Count 88 L, MPV 10.7, Differential Comment SCANNED, Sodium 138, Potassium 4.8, Chloride 107, Carbon Dioxide 28.0, Anion Gap 3 L, BUN 19 H, Creatinine 1.34 H, Estim Creat Clear Calc 57.27, Est GFR (MDRD) Af Amer 60, Est GFR (MDRD) Non-Af 50 L, BUN/Creatinine Ratio 14.2, Glucose 135 H, Calcium 7.0 L, Total Bilirubin 0.20, AST 37, ALT 12 L, Alkaline Phosphatase 84, Total Protein 3.4 L, Albumin 1.5 L, Globulin 1.9 L, Albumin/Globulin Ratio 0.8 L Micro: Microbiology 12/04/23 13:14 Sputum, Induced/Lukens Gram Stain - Final 12/03/23 13:20 Genital vaginal Group B Streptococcus (PCR) - Final ABG Data ABG results: ABG 12/04/23 12/04/23 13:29 15:52 Specimen Type ART ART Sample Site Art Line Art Line pH 7.37 7.45 Bicarbonate Actual 16.6 L 16.7 L Total CO2 18 17 Base Excess -9 L -7 L O2 Saturation 98 100 H O2 % 30.0 30.0 ABG pCO2 28.6 L 24.1 L ABG pO2 108 H 155 H Respiration Rate 14 O2 Delivery Device Not entered Not entered Vent Mode Not entered Not entered Tidal Volume 400.0 POC PEEP 5 5 Radiography Diagnostic Testing: Radiology Impression Abdomen/Pelvis CT 12/04/23 11:51 IMPRESSION: Prominent post gravid uterus. Fluid in the endometrial canal. Cannot exclude retained products of conception. Associated mild right hydroureteronephrosis. No retroperitoneal hematoma. Small amount of blood products along the left gluteal fold. Electronically Signed: Papi Craven MD at 13:09 EDT , Chest X-Ray 12/04/23 12:35 IMPRESSION: Endotracheal tube terminating 4.5 cm above the cash. Left internal jugular central venous catheter terminates near the cavoatrial junction. No pneumothorax. No acute pulmonary finding. Electronically Signed: Papi Craven MD at 12:57 EDT , Physical Exam Narrative General: Alert, Oriented x3, Cooperative, No apparent distress HEENT: Atraumatic, PERRLA, EOMI, Normocephalic Oral: Moist Mucosa Neck: Supple, No JVD Lungs: Clear to auscultation, Normal air movement, No rhonchi, No wheeze, No rales Cardiovascular: Regular rate, Regular Rhythm, Normal S1, Normal S2, No murmurs Abdomen: Soft, Non Tender, Non-Distended, No Hepato-splenomegaly Extremities: No edema, Capillary Refill Less than 3 Seconds Skin: No rashes, No breakdown Musculoskeletal: No Tenderness to Palpation of Joints or Extremities Neurological: No focal neurological deficits, Motor Exam 5/5 strength throughout, Sensory exam intact to light touch and pain Psych/Mental Status: Normal Affect, Appropriate Assessment & Plan Assessment/Plan (1) Severe pre-eclampsia: (2) Second degree perineal laceration: (3) Hemorrhagic shock: PLAN: Plan 1. Hemorrhagic shock secondary to a large vaginal hematoma after induced vaginal delivery at 35 weeks for preeclampsia ? Hemoglobin stabilized around 8.1, will recheck at 1 PM ? Extubated 12/04/2023 ? As needed labetalol and hydralazine for blood pressure control if necessary ? She received 4 units of PRBCs as well as 2 FFP and a pack of platelets ? [facility] transfer [facility] 2. Anxiety/depression ? Stable ? Continue with Prozac 3. GERD ? Stable ? Continue with PPI DVT: SCDs Charges/Coding Visit Charges Inpatient E&M: 20611 Subs Hosp L2
--- NOTE | 2023-12-05 10:17 | PN.OBGYN_ITS ---
Subjective Subjective Feeling better today. Minimal bleeding. Sore but not painful. BP has been stable. Hgb stable at 8.1. Pumping for breast milk. None yet. Baby getting donor milk. Objective Data Objective Data Vital Signs: Vital Signs Temp Pulse Resp BP Pulse Ox O2 Del Method FiO2 97.9 F 75 14 114/87 H 99 Room Air 30 12/05/23 08:00 12/05/23 09:00 12/05/23 09:00 12/05/23 09:00 12/05/23 09:00 12/05/23 09:00 12/04/23 14:00 Oxygen Delivery Method Room Air Weight: 67.8 kg Body Mass Index (BMI) 26.4 Intake & Output: Intake and Output for Last 24 Hours 12/03/23 12/04/23 12/05/23 23:59 23:59 23:59 Intake Total 890.48 / 890.48 2736.33 / 2736.33 Output Total 400 / 400 1418 / 1418 275 / 275 Balance 490.48 / 490.48 1318.33 / 1318.33 -275 / -275 Lab / Micro Data 12/05/23 03:08 12/05/23 03:08 Labs: Laboratory Results - last 24 hr 12/03/23 14:15: Blood Type O POSITIVE, Antibody Screen NEGATIVE, Crossmatch See Detail 12/04/23 09:05: MCV 91.5, MCHC 32.9 12/04/23 10:45: PT 16.9 H, INR 1.4, APTT 30.3, Fibrinogen 138 L 12/04/23 10:55: WBC 17.7 H, RBC 1.93 L, Hgb 5.7 L*, Hct 18.0 L, MCV 93.3, MCH 29.5, MCHC 31.7 L, RDW Std Deviation 47.4 H, RDW Coeff of June 14.0, Plt Count 155, MPV 11.1, Differential Comment COMMENT, Diff Path Review August, Lactic Acid 6.4 H* 12/04/23 14:45: Hgb 10.2 L, Hct 29.0 L 12/04/23 15:35: Lactic Acid 5.1 H* 12/04/23 16:10: Sodium 136, Potassium 5.4 H, Chloride 106, Carbon Dioxide 21.0, Anion Gap 9, BUN 15, Creatinine 1.48 H, Estim Creat Clear Calc 51.85, Est GFR (MDRD) Af Amer 54 L, Est GFR (MDRD) Non-Af 44 L, BUN/Creatinine Ratio 10.1, G lucose 179 H, Calcium 7.0 L 12/04/23 19:47: Hgb 8.8 L, Hct 25.2 L 12/04/23 23:05: Hgb 8.9 L, Hct 25.6 L 12/05/23 03:08: WBC 15.0 H, RBC 2.67 L, Hgb 8.1 L, Hct 23.3 L, MCV 87.3 D, MCH 30.3, MCHC 34.8 D, RDW Std Deviation 44.1 H, RDW Coeff of June 14.2, Plt Count 88 L, MPV 10.7, Differential Comment SCANNED, Sodium 138, Potassium 4.8, Chloride 107, Carbon Dioxide 28.0, Anion Gap 3 L, BUN 19 H, Creatinine 1.34 H, Estim Creat Clear Calc 57.27, Est GFR (MDRD) Af Amer 60, Est GFR (MDRD) Non-Af 50 L, BUN/Creatinine Ratio 14.2, Glucose 135 H, Calcium 7.0 L, Total Bilirubin 0.20, AST 37, ALT 12 L, Alkaline Phosphatase 84, Total Protein 3.4 L, Albumin 1.5 L, Globulin 1.9 L, Albumin/Globulin Ratio 0.8 L Micro: Microbiology 12/04/23 13:14 Sputum, Induced/Lukens Gram Stain - Final 12/03/23 13:20 Genital vaginal Group B Streptococcus (PCR) - Final ABG Data ABG results: ABG 12/04/23 12/04/23 13:29 15:52 Specimen Type ART ART Sample Site Art Line Art Line pH 7.37 7.45 Bicarbonate Actual 16.6 L 16.7 L Total CO2 18 17 Base Excess -9 L -7 L O2 Saturation 98 100 H O2 % 30.0 30.0 ABG pCO2 28.6 L 24.1 L ABG pO2 108 H 155 H Respiration Rate 14 O2 Delivery Device Not entered Not entered Vent Mode Not entered Not entered Tidal Volume 400.0 POC PEEP 5 5 Radiography Diagnostic Testing: Radiology Impression Abdomen/Pelvis CT 12/04/23 11:51 IMPRESSION: Prominent post gravid uterus. Fluid in the endometrial canal. Cannot exclude retained products of conception. Associated mild right hydroureteronephrosis. No retroperitoneal hematoma. Small amount of blood products along the left gluteal fold. Electronically Signed: Papi Craven MD at 13:09 EDT , Chest X-Ray 12/04/23 12:35 IMPRESSION: Endotracheal tube terminating 4.5 cm above the cash. Left internal jugular central venous catheter terminates near the cavoatrial junction. No pneumothorax. No acute pulmonary finding. Electronically Signed: Papi Craven MD at 12:57 EDT , ROS Constitutional Constitutional: Denies fever(s) Eyes Eyes: Denies change in vision ENT HEENT: Denies dizziness Cardiovascular Cardiovascular: Denies chest pain or dyspnea Respiratory/Chest Respiratory/Chest: Denies cough or dyspnea Integumentary Integumentary: Denies rash Neurologic Neurologic: Denies confusion or numbness Physical Exam Const alert, oriented x3 and no apparent distress General Appearance: cooperative and comfortable HEENT normocephalic and head/scalp atraumatic Eyes PERRL Neck full ROM Resp normal respiratory effort Effort and Inspection: able to speak in complete sentences Cardio regular rate GI soft to palpation and non-tender external exam normal Bladder / Kidney Exam: catheter in place Extremity General Extremity: edema bilateral (2+) lower extremity Skin no rashes or lesions noted Neuro oriented x3 and CN's II-XII intact bilaterally Psych mental status grossly normal Assessment & Plan (1) Hemorrhagic shock: (2) Vaginal delivery: (3) Severe pre-eclampsia: QUALIFIERS: Trimester: third trimester Qualified Code(s): O14.13 - Severe pre-eclampsia, third trimester (4) Vaginal hematoma:
--- NOTE | 2023-12-05 11:47 | NURSING ---
report called to [facility], transferred per wheelchair with belongings to room #4 mother present
[2023-12-05 15:27] LABS: Absolute Neutrophil Count 12.2 X10^3/uL (2.0-7.7); Basophil# 0.04 X10^3/uL; Basophil% 0.3 % (0-1); Eosinophil# 0.06 X10^3/uL; Eosinophils% 0.4 % (0-5); Hematocrit 22.4 % (37-47); Hemoglobin 7.6 g/dL (12.0-15.0); Lymphocyte % 10.3 % (19-41); Mean Corp Hgb Conc 33.9 g/dL (32-36); Mean Corpuscular Hgb 30.2 pg (27.0-32.0); Mean Corpuscular Volume 88.9 fL (81-99); Mean Platelet Vol. 11.4 fl (6.2-12.0); Monocyte# 1.33 X10^3/uL; Monocyte% 8.6 % (0-10); NRBC Flagged by Analyzer 0.7 % (0-5); Neutrophil # 12.15 X10^3/uL (2.7-7.7); Neutrophil % 78.1 % (47-70); POSITIVE COUNT YES; Platelet Count 85 K/mm3 (150-450); RBC Distribution Width CV 14.6 % (11.6-14.6); RBC Distribution Width SD 47.1 fl (35.1-43.9); Red Blood Count 2.52 M/mm3 (4.2-5.4); White Blood Count 15.5 K/mm3 (4.4-11.0)
[2023-12-05 16:12] LABS: Differential Indicated SCAN CRITERIA MET
[2023-12-05 16:13] LABS: Platelet Estimate SLT DEC (ADEQ)
[2023-12-05 16:14] LABS: Differential Comment SCANNED
--- NOTE | 2023-12-05 16:48 | PCM.PN.OB ---
Subjective Subjective Repeat CBC with Hgb 7.6. Is feeling light headed. BP and HR stable. Normal lochia. Two more units ordered for transfusion. Objective Data Objective Data Vital Signs: Vital Signs Temp Pulse Resp BP Pulse Ox O2 Del Method FiO2 98.3 F 77 16 121/82 H 97 Room Air 30 12/05/23 16:28 12/05/23 16:28 12/05/23 16:28 12/05/23 16:28 12/05/23 16:28 12/05/23 16:28 12/04/23 14:00 Oxygen Delivery Method Room Air Weight: 67.8 kg Body Mass Index (BMI) 26.4 Intake & Output: Intake and Output for Last 24 Hours 12/03/23 12/04/23 12/05/23 23:59 23:59 23:59 Intake Total 890.48 / 890.48 2736.33 / 2736.33 Output Total 400 / 400 1418 / 1418 675 / 675 Balance 490.48 / 490.48 1318.33 / 1318.33 -675 / -675 Lab / Micro Data 12/05/23 15:10 12/05/23 03:08 Labs: Laboratory Results - last 24 hr 12/03/23 14:15: Blood Type O POSITIVE, Antibody Screen NEGATIVE, Crossmatch See Detail 12/04/23 19:47: Hgb 8.8 L, Hct 25.2 L 12/04/23 23:05: Hgb 8.9 L, Hct 25.6 L 12/05/23 03:08: WBC 15.0 H, RBC 2.67 L, Hgb 8.1 L, Hct 23.3 L, MCV 87.3 D, MCH 30.3, MCHC 34.8 D, RDW Std Deviation 44.1 H, RDW Coeff of June 14.2, Plt Count 88 L, MPV 10.7, Differential Comment SCANNED, Sodium 138, Potassium 4.8, Chloride 107, Carbon Dioxide 28.0, Anion Gap 3 L, BUN 19 H, Creatinine 1.34 H, Estim Creat Clear Calc 57.27, Est GFR (MDRD) Af Amer 60, Est GFR (MDRD) Non-Af 50 L, BUN/Creatinine Ratio 14.2, Glucose 135 H, Calcium 7.0 L, Total Bilirubin 0.20, AST 37, ALT 12 L, Alkaline Phosphatase 84, Total Protein 3.4 L, Albumin 1.5 L, Globulin 1.9 L, Albumin/Globulin Ratio 0.8 L 12/05/23 15:10: WBC 15.5 H, RBC 2.52 L, Hgb 7.6 L, Hct 22.4 L, MCV 88.9, MCH 30.2, MCHC 33.9, RDW Std Deviation 47.1 H, RDW Coeff of June 14.6, Plt Count 85 L, MPV 11.4, Immature Gran % (Auto) 2.300 H, Neut % (Auto) 78.1 H, Lymph % (Auto) 10.3 L, [place] % (Auto) 8.6, Eos % (Auto) 0.4, Baso % (Auto) 0.3, Absolute Neuts (auto) 12.2 H, Absolute Lymphs (auto) 1.60, Nucleated RBC % 0.7, Differential Comment SCANNED, Platelet Estimate SLT DEC Micro: Microbiology 12/04/23 13:14 Sputum, Induced/Lukens Gram Stain - Final 12/04/23 13:14 Sputum, Induced/Lukens Respiratory Culture - Preliminary Culture exhibits no growth. 12/03/23 13:20 Genital vaginal Group B Streptococcus (PCR) - Final Assessment & Plan (1) Vaginal hematoma: (2) Hemorrhagic shock: (3) Second degree perineal laceration: (4) Vaginal delivery: (5) Severe pre-eclampsia: QUALIFIERS: Trimester: third trimester Qualified Code(s): O14.13 - Severe pre-eclampsia, third trimester PLAN: Plan Additional units of blood ordered. Repeat CBC for AM
--- NOTE | 2023-12-05 20:52 | NURSING ---
Volume in bag verified at 287ml, finisher polisher also verified amount.
--- NOTE | 2023-12-05 23:12 | NURSING ---
Blood volume 286ml, infusion completed at this time.
[2023-12-06 00:14] VITALS: BP 133/89; PULSE 58
[2023-12-06] MEDS: Ibuprofen 600 MG Tablet PO ×4 (02:12→20:18)
[2023-12-06] MEDS: Acetaminophen 500 MG Tablet 1000 MG PO ×4 (03:48→21:53)
[2023-12-06 03:50] VITALS: BP 157/91; PULSE 56; RESP 16; TEMP 36.6; O2SAT 98
[2023-12-06] MEDS: NIFEdipine 30 MG Tablet PO ×2 (04:38→21:52)
[2023-12-06 06:19] LABS: Hematocrit 31.9 % (37-47); Hemoglobin 10.7 g/dL (12.0-15.0); Mean Corp Hgb Conc 33.5 g/dL (32-36); Mean Corpuscular Hgb 29.6 pg (27.0-32.0); Mean Corpuscular Volume 88.4 fL (81-99); Mean Platelet Vol. 12.4 fl (6.2-12.0); POSITIVE COUNT YES; POSITIVE DIFFERENTIAL YES; POSITIVE MORPHOLOGY YES; Platelet Count 84 K/mm3 (150-450); RBC Distribution Width CV 14.7 % (11.6-14.6); RBC Distribution Width SD 47.3 fl (35.1-43.9); Red Blood Count 3.61 M/mm3 (4.2-5.4); White Blood Count 20.4 K/mm3 (4.4-11.0)
[2023-12-06 06:20] LABS: Differential Indicated MANUAL DIFF
[2023-12-06 06:50] LABS: Lymphocyte 13 % (19-41); Metamyelocyte 2 % (0-1); Monocyte 2 % (0-10); Myelocyte 1 % (0-0); Neutrophil-Segmented 82 % (47-70); Nucleated Red Bld Cells,Manual 2 % (0-5); Total Cells Counted 100 (MANUAL DIFF)
[2023-12-06 06:51] LABS: Anisocytosis 3+; Macrocytosis 2+; Ovalocyte 1+; Platelet Estimate MOD DEC (ADEQ); Polychromasia 2+
[2023-12-06 06:53] LABS: Absolute Lymphocyte Count 2.65 X10^3/uL (0.83-4.51); Absolute Neutrophil Count 16.7 X10^3/uL (2.0-7.7)
[2023-12-06 07:49] VITALS: BP 122/95; PULSE 65; RESP 16; TEMP 36.6; O2SAT 96
--- NOTE | 2023-12-06 09:05 | PCM.PN.OB ---
Subjective Subjective Feeling better today s/p two more units PRBCs. Has been ambulating. Voiding well. Pain controlled. Mild lochia. Mild headache behind her eyes. Has barely had any sleep. Pumping and trying to breast feeding. BP elevated after PRBCs. Started procardia overnight. Platelets are stable at 84. Objective Data Objective Data Vital Signs: Vital Signs Temp Pulse Resp BP Pulse Ox O2 Del Method FiO2 97.8 F 65 16 122/95 H 96 Room Air 30 12/06/23 07:49 12/06/23 07:49 12/06/23 07:49 12/06/23 07:49 12/06/23 07:49 12/06/23 07:49 12/04/23 14:00 Oxygen Delivery Method Room Air Weight: 67.8 kg Body Mass Index (BMI) 26.4 Intake & Output: Intake and Output for Last 24 Hours 12/04/23 12/05/23 12/06/23 23:59 23:59 23:59 Intake Total 2936.33 / 2936.33 402 / 402 Output Total 1418 / 1418 1475 / 1475 1200 / 1200 Balance 1518.33 / 1518.33 -1073 / -1073 -1200 / -1200 Lab / Micro Data 12/06/23 06:00 12/05/23 03:08 Labs: Laboratory Results - last 24 hr 12/03/23 14:15: Blood Type O POSITIVE, Antibody Screen NEGATIVE, Crossmatch See Detail 12/05/23 15:10: WBC 15.5 H, RBC 2.52 L, Hgb 7.6 L, Hct 22.4 L, MCV 88.9, MCH 30.2, MCHC 33.9, RDW Std Deviation 47.1 H, RDW Coeff of June 14.6, Plt Count 85 L, MPV 11.4, Immature Gran % (Auto) 2.300 H, Neut % (Auto) 78.1 H, Lymph % (Auto) 10.3 L, [place] % (Auto) 8.6, Eos % (Auto) 0.4, Baso % (Auto) 0.3, Absolute Neuts (auto) 12.2 H, Absolute Lymphs (auto) 1.60, Nucleated RBC % 0.7, Differential Comment SCANNED, Platelet Estimate SLT 12/06/23 06:00: WBC 20.4 H, RBC 3.61 L, Hgb 10.7 L, Hct 31.9 L, MCV 88.4, MCH 29.6, MCHC 33.5, RDW Std Deviation 47.3 H, RDW Coeff of June 14.7 H, Plt Count 84 L, MPV 12.4 H, Neut % (Auto) Not Reportable, Absolute Neuts (auto) 16.7 H, Absolute Lymphs (auto) 2.65, Total Counted 100, Neutrophils % (Manual) 82 H, Lymphocytes % (Manual) 13 L, Monocytes % (Manual) 2, Metamyelocytes % 2 H, Myelocytes % 1 H, Nucleated RBCs/100 WBC 2, Diff Path Review August, Platelet Estimate MOD DEC, Polychromasia 2+, Anisocytosis 3+, Macrocytosis 2+, Ovalocytes 1+ Micro: Microbiology 12/04/23 13:14 Sputum, Induced/Lukens Gram Stain - Final 12/04/23 13:14 Sputum, Induced/Lukens Respiratory Culture - Preliminary Culture exhibits no growth. 12/03/23 13:20 Genital vaginal Group B Streptococcus (PCR) - Final ROS Constitutional Constitutional: Reports fatigue and headache(s); Denies fever(s) Eyes Eyes: Denies blurry vision Respiratory/Chest Respiratory/Chest: Denies chest tightness, cough or dyspnea Gastrointestinal Gastrointestinal: Denies nausea or vomiting Genitourinary Genitourinary: Denies difficulty urinating Musculoskeletal Musculoskeletal: Denies difficulty walking Neurologic Neurologic: Denies syncope Physical Exam Const alert, oriented x3 and no apparent distress General Appearance: cooperative and comfortable HEENT normocephalic and head/scalp atraumatic Eyes PERRL and EOMs intact bilaterally Neck full ROM Resp normal respiratory effort GI soft to palpation external exam normal Extremity normal to inspection General Extremity: edema bilateral (improving) Skin no rashes or lesions noted Neuro oriented x3 and CN's II-XII intact bilaterally Psych mental status grossly normal Assessment & Plan (1) Vaginal hematoma: (2) Hemorrhagic shock: (3) Vaginal delivery: (4) Severe pre-eclampsia: QUALIFIERS: Trimester: third trimester Qualified Code(s): O14.13 - Severe pre-eclampsia, third trimester PLAN: Plan Increase ambulation. Procardia PO daily. Hemodynamically stable
[2023-12-06] MEDS: Fluoxetine HCl 40 MG CAPSULE PO (09:56)
--- NOTE | 2023-12-06 13:15 | CASEMGMT ---
Social Work Assessment Labor and Delivery Unit Patient Address: [address] [place] [id number] Phone number: Date of Referral: 12/04/23 Time of Referral: 19:39? Referred By: Pili Boss Date of Intervention: 12/06/23 Time of Intervention: 13:17 Reason for Referral:? Mental Health History obtained from: Medical records, mother of baby (MOB) Kate Marques and father of baby (FOB) Issa Marques.? Household composition: MOB, FOB and baby Rajinder. Patient's parent/guardian status:? MOB and FOB are and have been together for 5 years. Both parents are going to be actively involved in the care of their baby. Medical History: ?BONNIE has had 1 and one . MOB received care. Baby?s birthweight was 4lbs., 6oz. Apgars: 7 and 9. MOB stated that baby has had issues with latching however was introduced to the bottle which he is doing better with. Educational Status: MOB and FOB denied any issues or concerns with reading or writing. MOB attended some college. ?FOZaynab earned his High School diploma. Financial Status: MOB and FOB reported their income is sufficient to meet the needs of their family at this time. 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 BONNIE works from home and gets 8 weeks of maternity leave. CORIE gets 4 weeks of paternity leave. Infant Supplies: BONNIE and PRAKASHB reported they have all the supplies they need for baby at this time including but not limited to: Car Seat, bassinet, crib, diapers, bottles and clothing. Childcare/Caregiver(s): BONNIE will continue to care for her baby from home even after she returns to work. CORIE will assist with the care of the baby when he gets home from work. ? Transportation:? MOB and FOB reported they are both licensed drivers and have a reliable vehicle to take baby to and from all medical appointments. No transportation issues identified. Programs/Agencies Involved: BONNIE and CORIE denied any current programs or agencies involved at this time. ?BONNIE reported she used to be involved in counseling but is not currently connected with anyone. ?? Children Services/Legal Issues:? Denied. Behavioral Health Issues: ??Mental Health History: BONNIE has a history of anxiety and FOB has a history of depression. MOB reported she?s currently on medication which is managing her symptoms and FOB reported his depression is managed at this time. Substance Use History: Denied.? Family History:? Denied.??? Drug Screens: None? Family/Social Stressors:? MOB reported the birthing experience and complications have been stressful as well as not fully knowing when they will all be able to go home. No other stressors were identified. Support Systems: Ample. BONNIE described her biggest support as her and her sister. ?? Depression/Shaken Baby/Safe Sleeping: rocket test fire worker provided verbal and written education on PPD, Safe Sleeping and Shaken Baby.? Parents verbalized an understanding. ??? ASSESSMENT:? MOB and FOB provided consent to social work visit. Also present at the time of the visit was BONNIE?s sister.? Both parents consented to visit with the sister also being present. At the time of the visit, BONNIE was observed to be in her hospital bed holding and comforting her baby. FOB and sister of BONNIE were seated in the room. Baby?s geologist was identified as Dr. Saucedo. Positive interaction was observed between everyone in the room and parents appeared to be attached and bonded to their baby. Parents were verbally engaged. rocket test fire worker asked the FOB and MOB?s sister to leave the room so social work case manager cold talk to the MOB alone which everyone was agreeable to. BONNIE denied any DV in the home, reported she felt safe and denied any drug or alcohol abuse or other mental health issues. MOB denied any current concerns or safety issues. Safe Plan of Care for related to substance use: N/A; not needed. ? PLAN:? Baby to be discharged home.? rocket test fire worker also provided written information on depression, depression resources and Help Me Grow. ?No other services requested or indicated. Pili Wen, CHEMICAL PROCESSING SUPERVISOR, HOME VISITOR HOME BASE HEAD START
[2023-12-06 14:03] VITALS: BP 134/100; PULSE 86; RESP 16; TEMP 36.6; O2SAT 98
[2023-12-06] MEDS: 0.9% Saline Lock 10 ML Syringe IV ×2 (15:04→21:52)
[2023-12-06 20:21] VITALS: BP 152/105; PULSE 84; TEMP 36.5; O2SAT 96
[2023-12-06] MEDS: NIFEdipine 10 MG Capsule PO (20:42)
[2023-12-06 21:47] VITALS: BP 120/88
[2023-12-07] MEDS: Ibuprofen 600 MG Tablet PO ×2 (02:20→15:50)
[2023-12-07 02:23] VITALS: BP 147/99; PULSE 61; RESP 18; TEMP 37; O2SAT 95
[2023-12-07] MEDS: Acetaminophen 500 MG Tablet 1000 MG PO ×2 (03:59→10:11)
--- NOTE | 2023-12-07 06:57 | PCM.PN.OB ---
Subjective Subjective Looks and feels better this am. Pain minimal. Lochia light. Dull Headache. Bottle feeding donor milk. BP up and down in the last 24. Now on Procardia 30 XL BID. Next due at 1000. CBC and CMP pending. Objective Data Objective Data Vital Signs: Vital Signs Temp Pulse Resp BP Pulse Ox O2 Del Method FiO2 98.6 F 61 18 147/99 H 95 Room Air 30 12/07/23 02:23 12/07/23 02:23 12/07/23 02:23 12/07/23 02:23 12/07/23 02:23 12/07/23 02:23 12/04/23 14:00 Oxygen Delivery Method Room Air Weight: 67.8 kg Body Mass Index (BMI) 26.4 Intake & Output: Intake and Output for Last 24 Hours 12/05/23 12/06/23 12/07/23 23:59 23:59 23:59 Intake Total 402 / 402 Output Total 1475 / 1475 1600 / 1600 Balance -1073 / -1073 -1600 / -1600 Lab / Micro Data 12/06/23 06:00 12/05/23 03:08 Labs: Laboratory Results - last 24 hr 12/03/23 14:15: Blood Type O POSITIVE, Antibody Screen NEGATIVE, Crossmatch See Detail Micro: Microbiology 12/03/23 Unknown Genital vaginal Group B Streptococcus Culture - Final Streptococcus group G 12/04/23 13:14 Sputum, Induced/Lukens Gram Stain - Final 12/04/23 13:14 Sputum, Induced/Lukens Respiratory Culture - Preliminary Culture exhibits no growth. 12/03/23 13:20 Genital vaginal Group B Streptococcus (PCR) - Final ROS Constitutional Constitutional: Reports fatigue and headache(s); Denies fever(s) Eyes Eyes: Denies blurry vision Respiratory/Chest Respiratory/Chest: Denies chest tightness, cough or dyspnea Gastrointestinal Gastrointestinal: Denies nausea or vomiting Genitourinary Genitourinary: Denies difficulty urinating Musculoskeletal Musculoskeletal: Denies difficulty walking Neurologic Neurologic: Denies syncope Physical Exam Const alert, oriented x3 and no apparent distress General Appearance: cooperative and comfortable HEENT normocephalic and head/scalp atraumatic Eyes PERRL and EOMs intact bilaterally Neck full ROM Resp normal respiratory effort GI soft to palpation external exam normal Extremity normal to inspection General Extremity: edema bilateral (improving) Skin no rashes or lesions noted Neuro oriented x3 and CN's II-XII intact bilaterally Psych mental status grossly normal Assessment & Plan (1) Vaginal hematoma: (2) Hemorrhagic shock: (3) Vaginal delivery: (4) Severe pre-eclampsia: QUALIFIERS: Trimester: third trimester Qualified Code(s): O14.13 - Severe pre-eclampsia, third trimester PLAN: Plan Manage BP
[2023-12-07 06:59] LABS: Hematocrit 35.4 % (37-47); Hemoglobin 11.7 g/dL (12.0-15.0); Mean Corp Hgb Conc 33.1 g/dL (32-36); Mean Corpuscular Hgb 29.8 pg (27.0-32.0); Mean Corpuscular Volume 90.3 fL (81-99); Mean Platelet Vol. 10.9 fl (6.2-12.0); POSITIVE COUNT YES; POSITIVE MORPHOLOGY YES; Platelet Count 131 K/mm3 (150-450); RBC Distribution Width CV 14.9 % (11.6-14.6); RBC Distribution Width SD 48.1 fl (35.1-43.9); Red Blood Count 3.92 M/mm3 (4.2-5.4); White Blood Count 18.9 K/mm3 (4.4-11.0)
[2023-12-07 07:01] LABS: Differential Indicated MANUAL DIFF
--- NOTE | 2023-12-07 07:19 | PCM.OPRPT ---
Report of Operation Date of Procedure: 12/04/23 Pre-Operative Diagnosis: Hemorrhagic shock with need for vascular access Post-Operative Diagnosis: Same Surgery/Procedure Performed:: Ultrasound-guided left IJ central line placement Type of Anesthesia: Local Description of Procedure: Patient was on the operating table before surgery for vaginal hemorrhage. The team was having difficulty obtaining a second IV. I attempted left EJ but I was unable to cannulate the EJ vessel. Next left IJ was placed. The left neck was prepped and draped in usual sterile fashion. Ultrasound was used to localize the left IJ. The skin overlying this was injected with local anesthetic. A small skin incision was made. Under ultrasound guidance the needle was placed into the left IJ and dark blood was aspirated. Guidewire was placed without resistance. The needle was removed and the dilator were placed over the wire. The dilator was removed and the catheter was placed over the wire and then the wire was removed after the catheter was inserted. All of the catheters were aspirated and flushed. They all aspirated and flushed easily. They were each clamped and then the catheter was sutured to the skin using 3-0 silk suture. Dressing was applied. Chest x-ray will be obtained.
[2023-12-07 07:24] LABS: ALB/GLOB Ratio 0.6 RATIO (0.9-2.4); AST(SGOT) 70 U/L (15-37); Alanine Aminotransfer ALT/SGPT 27 U/L (13-56); Albumin, Serum 1.8 g/dL (3.2-5.0); Alkaline Phosphatase 113 U/L (45-117); Anion Gap 4 (5-15); BUN 12 mg/dL (7-18); BUN/Creat Ratio 15.5 RATIO (10-20); Calcium,Total 8.4 mg/dL (8.5-10.1); Chloride 108 mmol/L (98-107); Creatinine, Serum 0.77 mg/dL (0.55-1.02); EST Glomerular Filtration Rate 93 mL/min (>60); Est Glom Filt Rate - Afr Amer 113 mL/min (>60); Estimated Creatinine Clearance 99.66 ml/min; Globulin 3.1 g/dL (2.2-4.2); Glucose 103 mg/dL (74-106); Potassium 4.1 mmol/L (3.5-5.1); Protein, Total 4.9 g/dL (6.4-8.2); Sodium Level 138 mmol/L (136-145)
[2023-12-07 08:00] VITALS: BP 124/95; PULSE 66; RESP 17; TEMP 36.5
[2023-12-07] MEDS: Fluoxetine HCl 40 MG CAPSULE PO (10:12)
[2023-12-07] MEDS: NIFEdipine 30 MG Tablet PO ×2 (10:13→19:57)
[2023-12-07 10:36] LABS: Lymphocyte 13 % (19-41); Metamyelocyte 1 % (0-1); Monocyte 7 % (0-10); Neutrophil-Segmented 79 % (47-70); Platelet Estimate ADEQUATE (ADEQ); Red Cell Morphology NORM C+C NORMAL (NORM C&C); Total Cells Counted 100 (MANUAL DIFF)
[2023-12-07 14:05] VITALS: BP 132/96; PULSE 71; RESP 15; TEMP 36.2
[2023-12-07 15:44] LABS: Pathologist Review Reviewed
[2023-12-07 15:47] LABS: Pathologist Review Reviewed
[2023-12-07 19:35] VITALS: BP 136/103; PULSE 101; RESP 16; TEMP 36.6; O2SAT 98
[2023-12-08] VITALS (8 sets, daily range): BP systolic 123–150; BP diastolic 86–113; PULSE 73–91; RESP 16; TEMP 36.2–36.6; O2SAT 97–100
[2023-12-08] MEDS: Acetaminophen 500 MG Tablet 1000 MG PO (02:09)
[2023-12-08] MEDS: Ibuprofen 600 MG Tablet PO (05:51)
[2023-12-08] MEDS: Fluoxetine HCl 40 MG CAPSULE PO (10:09)
[2023-12-08] MEDS: NIFEdipine 60 MG Tablet PO ×2 (10:09→22:10)
--- NOTE | 2023-12-08 13:28 | PCM.PN.OB ---
Subjective Subjective Patient states she is feeling better. Denies new concerns. Objective Data Objective Data Vital Signs: Vital Signs Temp Pulse Resp BP Pulse Ox O2 Del Method FiO2 97.7 F L 85 16 130/98 H 97 Room Air 30 12/08/23 12:11 12/08/23 12:11 12/08/23 12:11 12/08/23 12:32 12/08/23 12:11 12/08/23 12:11 12/04/23 14:00 Oxygen Delivery Method Room Air Weight: 149 lb 7.574 oz Body Mass Index (BMI) 26.4 Intake & Output: Intake and Output for Last 24 Hours 12/06/23 12/07/23 12/08/23 23:59 23:59 23:59 Output Total 1600 / 1600 Balance -1600 / -1600 Lab / Micro Data 12/07/23 06:45 12/07/23 06:45 Labs: Laboratory Results - last 24 hr 12/04/23 10:55: Diff Path Review Reviewed 12/06/23 06:00: Diff Path Review Reviewed Micro: Microbiology 12/04/23 13:14 Sputum, Induced/Lukens Gram Stain - Final 12/04/23 13:14 Sputum, Induced/Lukens Respiratory Culture - Final Culture exhibits no growth. 12/03/23 Unknown Genital vaginal Group B Streptococcus Culture - Final Streptococcus group G 12/03/23 13:20 Genital vaginal Group B Streptococcus (PCR) - Final Physical Exam Const alert, oriented x3 and no apparent distress HEENT normocephalic GI soft to palpation, non-tender and non-distended GI Narrative: fundus firm, mid & below umbilicus Extremity normal to inspection and no calf tenderness Assessment & Plan (1) Vaginal delivery: COMMENT: PPD#4 (2) Severe pre-eclampsia: QUALIFIERS: Trimester: third trimester Qualified Code(s): O14.13 - Severe pre-eclampsia, third trimester (3) Vaginal hematoma: PLAN: Plan Routine PP care Severe preE - increase procardia XL to 60mg bid
[2023-12-08 15:28] LABS: Pathologist Review Reviewed
[2023-12-09 00:20] VITALS: BP 121/68; PULSE 64; RESP 16; TEMP 36.6; O2SAT 99
[2023-12-09 03:45] VITALS: BP 125/80; PULSE 65; RESP 16; TEMP 36.6; O2SAT 99
--- NOTE | 2023-12-09 08:47 | PCM.PN.OB ---
Subjective Subjective Minimal pain. Minimal bleeding. Breast feeding. Feels good. BP has been stable since 12 pm yesterday. If stable at 24 hours plan d/c home. Must have appointment on Thursday for BP check. Objective Data Objective Data Vital Signs: Vital Signs Temp Pulse Resp BP Pulse Ox O2 Del Method FiO2 98 F 65 16 125/80 H 99 Room Air 30 12/09/23 03:45 12/09/23 03:45 12/09/23 03:45 12/09/23 03:45 12/09/23 03:45 12/09/23 03:45 12/04/23 14:00 Oxygen Delivery Method Room Air Weight: 67.8 kg Body Mass Index (BMI) 26.4 Lab / Micro Data 12/07/23 06:45 12/07/23 06:45 Labs: Laboratory Results - last 24 hr 12/07/23 06:45: Diff Path Review Reviewed Micro: Microbiology 12/04/23 13:14 Sputum, Induced/Lukens Gram Stain - Final 12/04/23 13:14 Sputum, Induced/Lukens Respiratory Culture - Final Culture exhibits no growth. 12/03/23 Unknown Genital vaginal Group B Streptococcus Culture - Final Streptococcus group G 12/03/23 13:20 Genital vaginal Group B Streptococcus (PCR) - Final ROS Constitutional Constitutional: Denies fatigue, fever(s) or malaise Eyes Eyes: Denies change in vision ENT HEENT: Denies dizziness or headache(s) Cardiovascular Cardiovascular: Denies chest pain, dyspnea or lightheadedness Respiratory/Chest Respiratory/Chest: Denies cough or dyspnea Gastrointestinal Gastrointestinal: Denies change in bowel habits Genitourinary Genitourinary: Denies burning urination or genital lesions Integumentary Integumentary: Denies rash Neurologic Neurologic: Denies confusion, dizziness, headache(s), numbness or weakness Physical Exam Const alert and no apparent distress General Appearance: cooperative HEENT normocephalic Resp normal respiratory effort Cardio regular rate GI soft to palpation GI Narrative: gravid, nontender, appropriate for gestational age Extremity no calf tenderness General Extremity: edema bilateral Skin no wounds Rashes: No rashes noted Psych activity/motor behavior normal Assessment & Plan (1) Vaginal hematoma: (2) Hemorrhagic shock: (3) Second degree perineal laceration: (4) Vaginal delivery: (5) Severe pre-eclampsia: QUALIFIERS: Trimester: third trimester Qualified Code(s): O14.13 - Severe pre-eclampsia, third trimester PLAN: Plan D/c at noon if BP stable.
--- NOTE | 2023-12-09 08:51 | PCM.DC.SUM ---
Providers Date of Admission: 12/03/23 Date of Discharge: 12/09/23 Primary Care Physician: Cathy Primary Care Phys Consultations 12/04/23 14:32 Consult: Hospitalist Routine Consulting Provider: Amber Don Reason for Consult: icu admission for acute blood loss from hemorrhage EMERGENT Consult: Yes Notified: Yes Date Notified: 12/04/23 Time Notified: 13:30 Method of Notification: Verbal Method of Consult:: In-Person 12/04/23 14:36 Consult: Hospitalist Routine Consulting Provider: [facility] Reason for Consult: icu admission EMERGENT Consult: Yes Notified: Yes Date Notified: 12/04/23 Time Notified: 13:30 Method of Notification: Verbal Method of Consult:: In-Person Reason For Visit: VAGINAL DELIVERY Diagnosis Discharge Diagnosis (1) Vaginal hematoma: Status: Acute Code(s): N89.8 - Other specified noninflammatory disorders of vagina (2) Hemorrhagic shock: Status: Acute Code(s): R57.8 - Other shock (3) Second degree perineal laceration: Status: Acute Code(s): O70.1 - Second degree perineal laceration during delivery (4) Vaginal delivery: Status: Acute Code(s): O80 - Encounter for full-term uncomplicated delivery (5) Severe pre-eclampsia: Status: Acute Code(s): O14.10 - Severe pre-eclampsia, unspecified trimester Qualifiers: Trimester: third trimester Qualified Code(s): O14.13 - Severe pre-eclampsia, third trimester Plan D/c at noon if BP stable. Medications at Discharge Home Medications ferrous sulfate 325 mg (65 mg iron) tablet (FeroSul) 325 mg PO QODAY 12/03/23 fluoxetine 20 mg capsule 20 mg PO DAILY 12/03/23 pantoprazole 20 mg tablet,delayed release (Protonix) 20 mg PO DAILY 12/03/23 vit no.95-ferrous fumarate 28 mg-folic acid 800 mcg tablet () 1 tab PO DAILY 12/03/23 nifedipine 60 mg tablet,extended release 24 hr 60 mg PO BID #60 tabs 12/09/23 Hospital Course Operations - (Repair of extensive vaginal lacerations) Procedures Central line placement and Intubation Summary of Care Provided Minutes Spent on Discharge: 30 Hospital Course: Admitted for IOL for severe Pre E at 35 weeks. Rapid delivery after prolong induction. Vaginal hematoma formed bilateral causing hypotension. Taken to the OR for evaluation of hematoma and vaginal repair. CT demonstrated no retroperitoneal extension of hematoma. Bleeding stable after. Spent the night in ICU and received a total of 6 units PRBCs, @ [facility], and 1 on platelets. BP began to rise 36 hours PP. Procardia was started to BP management. Hgb stable after transfusion. BP stable after 3 days of medication management Physical Exam Const alert and no apparent distress General Appearance: cooperative HEENT normocephalic Resp normal respiratory effort Cardio regular rate GI soft to palpation GI Narrative: gravid, nontender, appropriate for gestational age Extremity no calf tenderness General Extremity: edema Skin no wounds Rashes: No rashes noted Psych activity/motor behavior normal Weight / BMI Weight Weight: 67.8 kg Body Mass Index (BMI) 26.4 ABG / Lab / Microbiology Data 12/07/23 06:45 12/07/23 06:45 Laboratory: Laboratory Results - last 24 hr 12/07/23 06:45: Diff Path Review Reviewed Microbiology: Microbiology 12/04/23 13:14 Sputum, Induced/Lukens Gram Stain - Final 12/04/23 13:14 Sputum, Induced/Lukens Respiratory Culture - Final Culture exhibits no growth. 12/03/23 Unknown Genital vaginal Group B Streptococcus Culture - Final Streptococcus group G 12/03/23 13:20 Genital vaginal Group B Streptococcus (PCR) - Final Meaningful Use Info Meaningful Use Meaningful Use Diagnoses (Choose all that apply): None applicable Ischemic Stroke Statin Dosing Therapy Reference: STATIN DOSE THERAPY REFERENCE: * Patients > 75 years receive moderate or high dose statin therapy. * Patients 75 years or YOUNGER should receive HIGH intensity statin dose unless contraindicated. You will be required to document reason for non-treatment if statin daily dose does not meet guidelines. HIGH DOSE STATIN THERAPY DAILY Atorvastatin > than or = to 40 mg Rosuvastatin > than or = to 20 mg Amlodipine + Atorvastatin > than or = to 2.5/40 mg Ezetimibe + Simvastatin 10/80 mg Simvastatin 80mg Discharge Plan Admission Admit Date/Time: 12/03/23 13:30 Primary Reason for Your Visit: IOL for pre E Attending Provider: Samantha Devine Primary Care Provider: Care Physician,No Primary Consulting Providers: Amber Don; Ashwin Valladares; Alpa Webber; Augustus Chaudhry Discharge Orders/Prescriptions Prescriptions: New nifedipine 60 mg Tablet Extended Release 24hr 60 mg PO BID Qty: 60 1RF Continued fluoxetine 20 mg capsule 20 mg PO DAILY pantoprazole [Protonix] 20 mg tablet,delayed release (DR/EC) 20 mg PO DAILY PNV cmb#95-ferrous fumarate-FA [] 28 mg iron- 800 mcg tablet 1 tab PO DAILY ferrous sulfate [FeroSul] 325 mg (65 mg iron) tablet 325 mg PO QODAY Discontinued aspirin [Aspirin Childrens] 81 mg tablet,chewable 1 tab PO DAILY Unisom (doxylamine) 25 mg tablet 12.5 mg PO QHS PRN (Reason: sleep) Patient Comments: takes 1/2 tablet qhs Rx Instructions: takes 1/2 tablet qhs pyridoxine (vitamin B6) 25 mg tablet 25 mg PO DAILY Referrals / Follow Up: Care Physician,No Primary [Primary Care Provider] - Disposition Disposition (needs filled in before D/C Order can be placed): Home, Self Care
[2023-12-09 09:05] VITALS: BP 131/101; PULSE 71; RESP 16; TEMP 36.6; O2SAT 97
[2023-12-09] MEDS: NIFEdipine 60 MG Tablet PO (09:17)
[2023-12-09] MEDS: Fluoxetine HCl 40 MG CAPSULE PO (09:52)
[2023-12-09 10:28] VITALS: BP 124/84
[2023-12-09 11:48] VITALS: BP 123/87
--- NOTE | 2023-12-09 12:40 | NURSING ---
F/U appt made for Thursday with [facility]
--- NOTE | 2023-12-09 12:53 | CASEMGMT ---
Labor and Delivery Social Work Sw presented to bedside and introduced self to mother of baby (MOB- Kate). Sw explained sw role and assessed for any needs or concerns. MOB reports that she is happy that she and baby are able to be discharged today. MOB states that this has been a long road and she is excited to be able to go home and sleep in her own bed. Sw asked MOB how she feels mentally, and if she has any lingering concerns of anxiety or depression. MOB states that her was tiring and difficult, and her responses to PHQ-9 were in response to that. MOB states that at this time she is feeling well, both physically and mentally and does not feel as though she is struggling or suffering from any anxiety, depression, or hopelessness. Sw congratulated MOB and FOB on their ability to be discharged today. MOB states that she has follow up appointments scheduled. Sw encouraged MOB to talk to her OBGYN regarding any mental health symptoms she may experience during this period. MOB expressed agreement and understanding. Jennie Canchola, PHP WEBSITE DEVELOPER, CAMPAIGN WORKER
== END 2023-12-09 12:30 | disposition home or self-care (01) | DRG 807 ==
LOC: WPOUT 13:30 → WP 13:31 → ICU 12-04 14:42 → WP 12-05 12:15
PROVIDERS: Family Medicine; Obstetrics & Gynecology; Admitting Provider Obstetrics & Gynecology; Referring Provider Obstetrics & Gynecology; Visit Provider Obstetrics & Gynecology
DX: O14.14 Severe pre-eclampsia complicating childbirth (principal); Z37.0 Single live birth; O75.1 Shock during or following labor and delivery; O60.14X0 Preterm labor third trimester with preterm delivery third trimester, not applicable or unspecified; O72.1 Other immediate postpartum hemorrhage; O99.43 Diseases of the circulatory system complicating the puerperium; O99.344 Other mental disorders complicating childbirth; F32.A Depression, unspecified; I95.89 Other hypotension; F41.9 Anxiety disorder, unspecified; K21.9 Gastro-esophageal reflux disease without esophagitis; O99.893 Other specified diseases and conditions complicating puerperium; O99.62 Diseases of the digestive system complicating childbirth; O9A.23 Injury, poisoning and certain other consequences of external causes complicating the puerperium; O70.1 Second degree perineal laceration during delivery; O71.7 Obstetric hematoma of pelvis; Z3A.35 35 weeks gestation of pregnancy; Z79.82 Long term (current) use of aspirin; Z79.899 Other long term (current) drug therapy
CPT/HCPCS: 31720; 36415; 59025; 59050; 71045; 74177; 76815; 80048; 80053; 82565; 82570; 82803; 83605; 84156; 84450; 84460; 84550; 85014; 85018; 85025; 85027; 85384; 85610; 85730; 86780; 86850; 86900; 86901; 86920; 86921; 86965; 87070; 87077; 87081; 87205; 87653; 94002; 94660; 99221; J7120; P9016; P9017; P9035; Q9967; A4216; C1751; G0378; J0702; J2405; J3490